=== PATIENT | female | born 1970 | race Caucasian/White ===

== ENCOUNTER → 2017-02-28 | Outpatient (CLI) | payer BC ==
--- NOTE | 2017-02-28 18:11 | CT ---
EXAMINATION TYPE: CT angio chest DATE OF EXAM: 02/28/2017 5:24 PM COMPARISON: 10/15/2016 HISTORY: F/U for PE x5 months ago. CT DLP: 245 mGycm Automated exposure control for dose reduction was used. CONTRAST: CTA scan of the thorax is performed with IV Contrast, patient injected with 60 mL of Omnipaque 350, p ulmonary embolism protocol. There are 3-D post processed images. FINDINGS: There is mild subpleural interstitial infiltrate in both lungs. There is no evidence of a pulmonary m ass. There is no pleural effusion. I see no filling defects in the pulmonary arteries. Thoracic aorta appears normal. There is no sign of aneurysm or dissection. There is no mediastinal adenopathy. Ther e are no hilar masses. There is a 1.5 cm right bronchial lymph node.. The bony thorax appears intact . IMPRESSION: THERE IS CLEARING OF THE RIGHT LOWER LOBE PULMONARY EMBOLI COMPARED TO OLD EXAM. THERE IS CLEARING OF THE PATCHY CONSOLIDATION IN THE RIGHT LOWER LOBE COMPARED TO OLD EXAM. THERE IS MILD NONSPECIFIC SUB PLEURAL INTERSTITIAL DENSITY CONSISTENT WITH MILD FIBROSIS. STABLE 1.5 CM RIGHT BRONCHIAL LYMPH NODE. NO EVIDENCE OF PULMONARY EMBOLISM.
== END | disposition home or self-care (01) ==
LOC: RADCTMAIN 16:54
PROVIDERS: ATTEND Internal Medicine Critical Care Medicine
DX: J84.10 Pulmonary fibrosis, unspecified (principal); R91.8 Other nonspecific abnormal finding of lung field
CPT/HCPCS: 71275; Q9967

== ENCOUNTER 2017-09-10 14:49 | Emergency (ER) | payer BC ==
[2017-09-10] MEDS ORDERED: HYDROmorphone 0.5 MG/0.5 ML SYRINGE IVP STA (15:14)
[2017-09-10] MEDS ORDERED: ONDANSETRON 4 MG/2 ML VIAL IVP STA (15:14)
[2017-09-10] MEDS ORDERED: PHENAZOPYRIDINE 200 MG TAB PO STA (15:16)
[2017-09-10] MEDS ORDERED: cefTRIAXone 2,000 MG in SODIUM CHLORIDE 0.9% 100 ML IVPB STA (15:22)
[2017-09-10] MEDS ORDERED: LEVOFLOXACIN 750MG-D5W PMX 750 MG in DEXTROSE/WATER 1 150ML.BAG IVPB STA (15:23)
[2017-09-10] MEDS: SODIUM CHLORIDE 0.9% 500 ML IV SCH ×2 (15:26→15:27)
[2017-09-10 15:49] LABS: Basophils % (A) 0 %; CH 27.3; CHCM 31.2; Eosinophils # (A) 0.1 k/uL (0-0.7); Eosinophils % (A) 1 %; HCT 38.8 % (34.0-46.0); HDW 2.64; HGB 11.8 gm/dL (11.4-16.0); Hypochromasia Slight; Luc # (Auto) 0.22; Luc % (Auto) 2; Lymphocytes # (A) 1.6 k/uL (1.0-4.8); Lymphocytes % (A) 14 %; MCH 26.7 pg (25.0-35.0); MCHC 30.4 g/dL (31.0-37.0); MCV 87.7 fL (80.0-100.0); Mean Platelet Volume 7.5; Monocytes # (A) 0.7 k/uL (0-1.0); Monocytes % (A) 6 %; Neutrophils # (A) 8.9 k/uL (1.3-7.7); Neutrophils % (A) 77 %; RBC 4.43 m/uL (3.80-5.40); RDW 15.7 % (11.5-15.5); WBC 11.5 k/uL (3.8-10.6); WBC (Perox) 11.24
[2017-09-10 15:58] LABS: Appearance,Urine Turbid (Clear); Bacteria,Urine Rare /hpf; Bilirubin,Urine Negative (Negative); Glucose,Urine (UA) Negative (Negative); INR 1.2 (<1.2); Ketones,Urine 1+ (Negative); Leukocyte Esterase,Urine Large (Negative); Mucus,Urine Few /hpf; Nitrite,Urine Negative (Negative); Partial Thromboplastin Time 28.2 sec (22.0-30.0); Particle Count 28937; Protein,Urine 3+ (Negative); Prothrombin Time 11.6 sec (9.0-12.0); RBC,Urine 102 /hpf (0-5); Specific Gravity,Urine 1.014 (1.001-1.035); Squamous Epithelial Cell,Urine 1 /hpf (0-4); UA Billing (MACRO vs. MICRO) MICRO; Urobilinogen,Urine <2.0 mg/dL (<2.0); WBC,Urine >182 /hpf (0-5)
--- NOTE | 2017-09-10 16:00 | XR ---
EXAMINATION TYPE: XR chest 2V DATE OF EXAM: 09/10/2017 COMPARISON: Prior chest x-ray 10/15/2016 HISTORY: Fever, chest congestion, emphysema TECHNIQUE: Frontal and lateral views of the chest are obtained. FINDINGS: There is no significant interval change. Interstitium appears somewhat prominently. Cardia c mediastinal silhouette, pulmonary vascularity and leonard are unchanged. Prominent lung volumes sugges ts underlying COPD. No pneumonia, pneumothorax, or pleural effusion. IMPRESSION: Stable findings. Interstitial lung disease.
[2017-09-10 16:01] LABS: ALT 25 U/L (9-52); AST 17 U/L (14-36); Alkaline Phosphatase 98 U/L (38-126); Anion Gap 11 mmol/L; Blood Urea Nitrogen 6 mg/dL (7-17); Calcium 9.2 mg/dL (8.4-10.2); Carbon Dioxide 23 mmol/L (22-30); Chloride 102 mmol/L (98-107); Glucose 95 mg/dL (74-99); Non-African American GFR(MDRD) >60 (>60 ml/min/1.73 sqM); Potassium 4.4 mmol/L (3.5-5.1); Sodium 136 mmol/L (137-145); Total Bilirubin 0.6 mg/dL (0.2-1.3); Total Protein 6.9 g/dL (6.3-8.2)
--- NOTE | 2017-09-10 16:01 | XR ---
EXAMINATION TYPE: XR KUB DATE OF EXAM: 09/10/2017 COMPARISON: 10/15/2016 INDICATION: Pain kidney area TECHNIQUE: Single view abdomen upright view FINDINGS: There is a normal bowel gas pattern. Psoas margins are normal. No organomegaly is present. No free air is evident. No suspicious differential air-fluid levels are present. No suspicious calcif ications are identified IMPRESSION: 1. Unremarkable Abdomen
--- NOTE | 2017-09-10 16:04 | ED ---
General Adult HPI - General Chief complaint: Abdominal Pain Stated complaint: Abd Pain/Congestion Time Seen by Provider: 09/10/17 15:07 Source: patient, EMS, RN notes reviewed Mode of arrival: EMS Limitations: no limitations - History of Present Illness Initial comments: This a 46-year-old female presents emergency Department chief complaint not feeling well. Patient states her last 2 weeks she's had cold-like symptoms and now has developed abdominal discomfort. Patient states that she started with cough and chest congestion was placed on amoxicillin and prednisone. She states she completed that states never completely alleviated her symptoms. Patient states that she's had an obstructive fevers and chills. Patient now has developed dysuria, increased frequency of urination and some lower abdominal pain. Patient denies nausea, vomiting, diarrhea or constipation. She does complain of some back pain but no localized flank pain. In states that she's had a history of urinary tract infection. Denies any chest pain or shortness of breath at this time. - Related Data Home Medications Medication Instructions Recorded Confirmed FLUoxetine HCL [PROzac] 60 mg PO DAILY 05/07/16 09/10/17 ALPRAZolam [Xanax] 0.5 mg PO BID PRN 09/10/17 09/10/17 Albuterol Sulfate [Proair Hfa] 1 - 2 puff INHALATION RT-Q6H PRN 09/10/17 Fluticasone/Vilanterol [Breo 1 puff INHALATION RT-DAILY 09/10/17 09/10/17 Ellipta 200-25 Mcg INH] Rivaroxaban [Xarelto] 20 mg PO DAILY 09/10/17 09/10/17 Previous Rx's Medication Instructions Recorded Hydrocodone/Acetaminophen [[place] 1 tab PO Q6HR PRN #15 tab 09/10/17 5-325] Levofloxacin [Levaquin] 500 mg PO DAILY #7 tab 09/10/17 Ondansetron Odt [Zofran Odt] 4 mg PO Q8HR PRN #10 tab 09/10/17 Allergies Allergy/AdvReac Type Severity Reaction Status Date / Time asparagus Allergy Unknown Verified 09/10/17 15:12 banana Allergy Unknown Verified 09/10/17 15:12 black walnut Allergy Unknown Verified 09/10/17 15:12 grape Allergy Unknown Verified 09/10/17 15:12 latex Allergy Rash/Hives Verified 09/10/17 15:12 Mushroom Allergy Unknown Verified 09/10/17 15:12 pineapple Allergy Unknown Verified 09/10/17 15:12 Sulfa (Sulfonamide Allergy Rash/Hives Verified 09/10/17 15:12 Antibiotics) tomato Allergy Unknown Verified 09/10/17 15:12 yeast, dried Allergy Rash/Hives Verified 09/10/17 15:12 bupropion HCl AdvReac Hallucinati Verified 09/10/17 15:12 [From Wellbutrin] ons Review of Systems ROS Statement: Those systems with pertinent positive or pertinent negative responses have been documented in the HPI. ROS Other: All systems not noted in ROS Statement are negative. Past Medical History Past Medical History: Asthma, Pulmonary Embolus (PE) Additional Past Medical History / Comment(s): lymes disease, pulmonary infarction, MTHFR gene mutation. History of Any Multi-Drug Resistant Organisms: None Reported Past Surgical History: Adenoidectomy, Tonsillectomy Past Anesthesia/Blood Transfusion Reactions: No Reported Reaction Past Psychological History: Anxiety, Depression Smoking Status: Current every day smoker Past Alcohol Use History: Occasional Past Drug Use History: None Reported - Past Family History Mother Family Medical History: No Reported History Father Family Medical History: Pulmonary Embolus Additional Family Medical History / Comment(s): father of PE post tramatic chest injury General Exam Limitations: no limitations General appearance: alert, in no apparent distress Head exam: Present: atraumatic, normocephalic, normal inspection Eye exam: Present: normal appearance, PERRL, EOMI. Absent: scleral icterus, conjunctival injection, periorbital swelling ENT exam: Present: normal exam, normal oropharynx, mucous membranes moist, TM's normal bilaterally, normal external ear exam Neck exam: Present: normal inspection. Absent: tenderness, meningismus, lymphadenopathy Respiratory exam: Present: rhonchi (Mild rhonchi right lower). Absent: normal lung sounds bilaterally, respiratory distress, wheezes, rales, stridor Cardiovascular Exam: Present: normal rhythm, tachycardia, normal heart sounds. Absent: systolic murmur, diastolic murmur, rubs, gallop, clicks GI/Abdominal exam: Present: soft, tenderness (Moderate suprapubic tenderness), normal bowel sounds. Absent: distended, guarding, rebound, rigid Back exam: Absent: CVA tenderness (R), CVA tenderness (L) Skin exam: Present: warm, dry, intact, normal color. Absent: rash Course Vital Signs 09/10/17 09/10/17 09/10/17 14:51 15:09 16:02 Temperature 99.1 F Pulse Rate 104 H 82 Respiratory 18 18 Rate Blood Pressure 109/72 116/55 O2 Sat by Pulse 97 100 Oximetry Medical Decision Making - Medical Decision Making 46-year-old female presented for urinary symptoms and cough congestion. Patient is feeling improved at this time. Patient primary complaining of lower abdominal pain when she urinated. Patient urinalysis does show evidence of urinary tract infection. Patient has no flank tenderness. Patient chest x-ray does not show any evidence in the morning she does have some evidence of acute bronchitis. Patient will be discharged antibiotics with close follow-up with PCP - Lab Data Result diagrams: 09/10/17 15:18 09/10/17 15:18 Lab Results 09/10/17 09/10/17 09/10/17 Range/Units 15:18 15:18 15:18 WBC 11.5 H (3.8-10.6) k/uL RBC 4.43 (3.80-5.40) m/uL Hgb 11.8 (11.4-16.0) gm/dL Hct 38.8 (34.0-46.0) % MCV 87.7 (80.0-100.0) fL MCH 26.7 (25.0-35.0) pg MCHC 30.4 L (31.0-37.0) g/dL RDW 15.7 H (11.5-15.5) % Plt Count 239 (150-450) k/uL Neutrophils % 77 % Lymphocytes % 14 % Monocytes % 6 % Eosinophils % 1 % Basophils % 0 % Neutrophils # 8.9 H (1.3-7.7) k/uL Lymphocytes # 1.6 (1.0-4.8) k/uL Monocytes # 0.7 (0-1.0) k/uL Eosinophils # 0.1 (0-0.7) k/uL Basophils # 0.0 (0-0.2) k/uL Hypochromasia Slight PT (9.0-12.0) sec INR (<1.2) APTT (22.0-30.0) sec Sodium 136 L (137-145) mmol/L Potassium 4.4 (3.5-5.1) mmol/L Chloride 102 (98-107) mmol/L Carbon Dioxide 23 (22-30) mmol/L Anion Gap 11 mmol/L BUN 6 L (7-17) mg/dL Creatinine 0.70 (0.52-1.04) mg/dL Est GFR (MDRD) Af Amer >60 (>60 ml/min/1.73 sqM) Est GFR (MDRD) Non-Af >60 (>60 ml/min/1.73 sqM) Glucose 95 (74-99) mg/dL Plasma Lactic Acid Gopi 1.2 (0.7-2.0) mmol/L Calcium 9.2 (8.4-10.2) mg/dL Total Bilirubin 0.6 (0.2-1.3) mg/dL AST 17 (14-36) U/L ALT 25 (9-52) U/L Alkaline Phosphatase 98 (38-126) U/L Total Protein 6.9 (6.3-8.2) g/dL Albumin 3.9 (3.5-5.0) g/dL Urine Color Urine Appearance (Clear) Urine pH (5.0-8.0) Ur Specific [place] (1.001-1.035) Urine Protein (Negative) Urine Glucose (UA) (Negative) Urine Ketones (Negative) Urine Blood (Negative) Urine Nitrite (Negative) Urine Bilirubin (Negative) Urine Urobilinogen (<2.0) mg/dL Ur Leukocyte Esterase (Negative) Urine RBC (0-5) /hpf Urine WBC (0-5) /hpf Urine WBC Clumps (None) /hpf Ur Squamous Epith Cells (0-4) /hpf Urine Bacteria (None) /hpf Hyaline Casts (0-2) /lpf Urine Mucus (None) /hpf 09/10/17 09/10/17 Range/Units 15:18 15:18 WBC (3.8-10.6) k/uL RBC (3.80-5.40) m/uL Hgb (11.4-16.0) gm/dL Hct (34.0-46.0) % MCV (80.0-100.0) fL MCH (25.0-35.0) pg MCHC (31.0-37.0) g/dL RDW (11.5-15.5) % Plt Count (150-450) k/uL Neutrophils % % Lymphocytes % % Monocytes % % Eosinophils % % Basophils % % Neutrophils # (1.3-7.7) k/uL Lymphocytes # (1.0-4.8) k/uL Monocytes # (0-1.0) k/uL Eosinophils # (0-0.7) k/uL Basophils # (0-0.2) k/uL Hypochromasia PT 11.6 (9.0-12.0) sec INR 1.2 H (<1.2) APTT 28.2 (22.0-30.0) sec Sodium (137-145) mmol/L Potassium (3.5-5.1) mmol/L Chloride (98-107) mmol/L Carbon Dioxide (22-30) mmol/L Anion Gap mmol/L BUN (7-17) mg/dL Creatinine (0.52-1.04) mg/dL Est GFR (MDRD) Af Amer (>60 ml/min/1.73 sqM) Est GFR (MDRD) Non-Af (>60 ml/min/1.73 sqM) Glucose (74-99) mg/dL Plasma Lactic Acid Gopi (0.7-2.0) mmol/L Calcium (8.4-10.2) mg/dL Total Bilirubin (0.2-1.3) mg/dL AST (14-36) U/L ALT (9-52) U/L Alkaline Phosphatase (38-126) U/L Total Protein (6.3-8.2) g/dL Albumin (3.5-5.0) g/dL Urine Color Yellow Urine Appearance Turbid H (Clear) Urine pH 7.0 (5.0-8.0) Ur Specific [place] 1.014 (1.001-1.035) Urine Protein 3+ H (Negative) Urine Glucose (UA) Negative (Negative) Urine Ketones 1+ H (Negative) Urine Blood Moderate H (Negative) Urine Nitrite Negative (Negative) Urine Bilirubin Negative (Negative) Urine Urobilinogen <2.0 (<2.0) mg/dL Ur Leukocyte Esterase Large H (Negative) Urine RBC 102 H (0-5) /hpf Urine WBC >182 H (0-5) /hpf Urine WBC Clumps Many H (None) /hpf Ur Squamous Epith Cells 1 (0-4) /hpf Urine Bacteria Rare H (None) /hpf Hyaline Casts 39 H (0-2) /lpf Urine Mucus Few H (None) /hpf Disposition Clinical Impression: Abdominal pain, UTI (urinary tract infection), Acute bronchitis Disposition: HOME SELF-CARE Condition: Stable Instructions: Abdominal Pain (ED), Urinary Tract Infection in Women (ED) Additional Instructions: Please return to the Emergency Department if symptoms worsen or any other concerns. Prescriptions: Hydrocodone/Acetaminophen [[place] 5-325] 1 tab PO Q6HR PRN #15 tab PRN Reason: Pain Levofloxacin [Levaquin] 500 mg PO DAILY #7 tab Ondansetron Odt [Zofran Odt] 4 mg PO Q8HR PRN #10 tab PRN Reason: Nausea Referrals: Antonino Swartz MD [Primary Care Provider] - 1-2 days Time of Disposition: 16:28
[2017-09-10 17:08] VITALS: BP 111/58; PULSE 71; RESP 16; TEMP 98.1
== END 2017-09-10 17:15 | disposition home or self-care (01) ==
LOC: EC 14:49
DX: N39.0 Urinary tract infection, site not specified (principal); J20.9 Acute bronchitis, unspecified; R10.9 Unspecified abdominal pain; J45.909 Unspecified asthma, uncomplicated; Z86.711 Personal history of pulmonary embolism; F32.9 Major depressive disorder, single episode, unspecified; F41.9 Anxiety disorder, unspecified; F17.200 Nicotine dependence, unspecified, uncomplicated; Z79.01 Long term (current) use of anticoagulants; Z79.51 Long term (current) use of inhaled steroids; Z79.899 Other long term (current) drug therapy; Z91.018 Allergy to other foods; Z91.040 Latex allergy status; Z88.2 Allergy status to sulfonamides; Z88.8 Allergy status to other drugs, medicaments and biological substances; Z91.048 Other nonmedicinal substance allergy status
CPT/HCPCS: 99284 ×2; 96375 ×3; 96374; 36415; 80053; 83605; 85025; 85610; 85730; 81001; 87040; 87086; 87077; 87186; 71020; 74000; 96365; 96361; J2405; J1956; J1170

== ENCOUNTER 2018-01-07 11:58 | Emergency (ER) | payer BC ==
[2018-01-07 12:03] VITALS: RESP 18
--- NOTE | 2018-01-07 12:36 | ED ---
General Adult HPI - General Chief complaint: Urogenital Stated complaint: Rash Time Seen by Provider: 01/07/18 12:06 Source: patient, RN notes reviewed Mode of arrival: ambulatory Limitations: no limitations - History of Present Illness Initial comments: 47-year-old female presents to the emergency Department chief complaint of dysuria. She states she's had dysuria for the past few days. She has long history of bladder infections in the past. She states she's had a foul odor to her urine and burning with urination. Patient states that she also developed this rash after receiving a Hydrospa2 days ago she had a few spots nontender abdomen her hands and her feet. She states that they are itchy. They came up right after receiving the MUD from the Hydrospa. She states she's also had some cough and congestion. Patient denies any fever chills any back pain. She denies any nausea or vomiting. [facility] was [facility] here for continued evaluation. Patient denies any recent fever, chills, shortness of breath, chest pain, back pain, abdominal pain, nausea vomiting, numbness or tingling,hematuria, constipation or diarrhea, headaches or visual changes, or any other current symptoms. - Related Data Home Medications Medication Instructions Recorded Confirmed FLUoxetine HCL [PROzac] 60 mg PO DAILY 05/07/16 01/07/18 ALPRAZolam [Xanax] 0.5 mg PO BID PRN 09/10/17 01/07/18 Rivaroxaban [Xarelto] 20 mg PO DAILY 09/10/17 01/07/18 Allergies Allergy/AdvReac Type Severity Reaction Status Date / Time asparagus Allergy Unknown Verified 01/07/18 12:38 banana Allergy Unknown Verified 01/07/18 12:38 black walnut Allergy Unknown Verified 01/07/18 12:38 grape Allergy Unknown Verified 01/07/18 12:38 latex Allergy Rash/Hives Verified 01/07/18 12:38 Mushroom Allergy Unknown Verified 01/07/18 12:38 pineapple Allergy Unknown Verified 01/07/18 12:38 Sulfa (Sulfonamide Allergy Rash/Hives Verified 01/07/18 12:38 Antibiotics) tomato Allergy Unknown Verified 01/07/18 12:38 yeast, dried Allergy Rash/Hives Verified 01/07/18 12:38 bupropion HCl AdvReac Hallucinati Verified 01/07/18 12:38 [From Wellbutrin] ons mold AdvReac Unknown Verified 01/07/18 12:38 Review of Systems ROS Statement: Those systems with pertinent positive or pertinent negative responses have been documented in the HPI. ROS Other: All systems not noted in ROS Statement are negative. Past Medical History Past Medical History: Asthma, Pulmonary Embolus (PE) Additional Past Medical History / Comment(s): lymes disease, pulmonary infarction, MTHFR gene mutation. History of Any Multi-Drug Resistant Organisms: None Reported Past Surgical History: Adenoidectomy, Tonsillectomy Past Anesthesia/Blood Transfusion Reactions: No Reported Reaction Past Psychological History: Anxiety, Depression Smoking Status: Current every day smoker Past Alcohol Use History: Occasional Past Drug Use History: None Reported - Past Family History Mother Family Medical History: No Reported History Father Family Medical History: Pulmonary Embolus Additional Family Medical History / Comment(s): father of PE post tramatic chest injury General Exam Limitations: no limitations General appearance: alert, in no apparent distress ENT exam: Present: normal exam, mucous membranes moist Neck exam: Present: normal inspection. Absent: tenderness, meningismus, lymphadenopathy Respiratory exam: Present: normal lung sounds bilaterally. Absent: respiratory distress, wheezes, rales, rhonchi, stridor Cardiovascular Exam: Present: regular rate, normal rhythm, normal heart sounds. Absent: systolic murmur, diastolic murmur, rubs, gallop, clicks GI/Abdominal exam: Present: soft, tenderness (Minimal suprapubic), normal bowel sounds. Absent: distended, guarding, rebound, rigid Extremities exam: Present: normal inspection, full ROM, normal capillary refill. Absent: tenderness, pedal edema, joint swelling, calf tenderness Back exam: Present: normal inspection Neurological exam: Present: alert, oriented X3 Psychiatric exam: Present: normal affect, normal mood Skin exam: Present: warm, dry, other (Small papules on the hands abdomen and foot) Course Vital Signs 01/07/18 01/07/18 12:00 15:03 Temperature 98.1 F Pulse Rate 78 75 Respiratory 18 18 Rate Blood Pressure 138/73 132/62 O2 Sat by Pulse 100 99 Oximetry Medical Decision Making - Medical Decision Making 47-year-old female presents for cough and congestion. At this time patient's lab work is been reviewed. At this time patient's CAT scan is been reviewed. We did discussion follow-up with her doctor for some fluid collection. We did discuss return parameters all questions. The patient stated that she understood and she is agreement this plan. All questions have been answered. This time the patient will be discharged home. - Lab Data Result diagrams: 01/07/18 14:00 01/07/18 14:00 Lab Results 01/07/18 01/07/18 01/07/18 Range/Units 12:55 12:55 14:00 WBC 8.3 (3.8-10.6) k/uL RBC 4.54 (3.80-5.40) m/uL Hgb 11.5 (11.4-16.0) gm/dL Hct 38.4 (34.0-46.0) % MCV 84.5 (80.0-100.0) fL MCH 25.2 (25.0-35.0) pg MCHC 29.8 L (31.0-37.0) g/dL RDW 16.0 H (11.5-15.5) % Plt Count 292 (150-450) k/uL Neutrophils % 60 % Lymphocytes % 30 % Monocytes % 6 % Eosinophils % 1 % Basophils % 1 % Neutrophils # 5.0 (1.3-7.7) k/uL Lymphocytes # 2.5 (1.0-4.8) k/uL Monocytes # 0.5 (0-1.0) k/uL Eosinophils # 0.1 (0-0.7) k/uL Basophils # 0.1 (0-0.2) k/uL Hypochromasia Moderate Sodium (137-145) mmol/L Potassium (3.5-5.1) mmol/L Chloride (98-107) mmol/L Carbon Dioxide (22-30) mmol/L Anion Gap mmol/L BUN (7-17) mg/dL Creatinine (0.52-1.04) mg/dL Est GFR (MDRD) Af Amer (>60 ml/min/1.73 sqM) Est GFR (MDRD) Non-Af (>60 ml/min/1.73 sqM) Glucose (74-99) mg/dL Calcium (8.4-10.2) mg/dL Total Bilirubin (0.2-1.3) mg/dL AST (14-36) U/L ALT (9-52) U/L Alkaline Phosphatase (38-126) U/L Total Protein (6.3-8.2) g/dL Albumin (3.5-5.0) g/dL Urine Color Light Yellow Urine Appearance Clear (Clear) Urine pH 6.5 (5.0-8.0) Ur Specific [place] 1.005 (1.001-1.035) Urine Protein Negative (Negative) Urine Glucose (UA) Negative (Negative) Urine Ketones Negative (Negative) Urine Blood Negative (Negative) Urine Nitrite Negative (Negative) Urine Bilirubin Negative (Negative) Urine Urobilinogen <2.0 (<2.0) mg/dL Ur Leukocyte Esterase Negative (Negative) Influenza Type A RNA Not Detected (Not Detectd) Influenza Type B (PCR) Not Detected (Not Detectd) 01/07/18 Range/Units 14:00 WBC (3.8-10.6) k/uL RBC (3.80-5.40) m/uL Hgb (11.4-16.0) gm/dL Hct (34.0-46.0) % MCV (80.0-100.0) fL MCH (25.0-35.0) pg MCHC (31.0-37.0) g/dL RDW (11.5-15.5) % Plt Count (150-450) k/uL Neutrophils % % Lymphocytes % % Monocytes % % Eosinophils % % Basophils % % Neutrophils # (1.3-7.7) k/uL Lymphocytes # (1.0-4.8) k/uL Monocytes # (0-1.0) k/uL Eosinophils # (0-0.7) k/uL Basophils # (0-0.2) k/uL Hypochromasia Sodium 142 (137-145) mmol/L Potassium 4.5 (3.5-5.1) mmol/L Chloride 104 (98-107) mmol/L Carbon Dioxide 27 (22-30) mmol/L Anion Gap 11 mmol/L BUN 12 (7-17) mg/dL Creatinine 0.90 (0.52-1.04) mg/dL Est GFR (MDRD) Af Amer >60 (>60 ml/min/1.73 sqM) Est GFR (MDRD) Non-Af >60 (>60 ml/min/1.73 sqM) Glucose 89 (74-99) mg/dL Calcium 9.9 (8.4-10.2) mg/dL Total Bilirubin 0.2 (0.2-1.3) mg/dL AST 20 (14-36) U/L ALT 27 (9-52) U/L Alkaline Phosphatase 100 (38-126) U/L Total Protein 7.2 (6.3-8.2) g/dL Albumin 4.4 (3.5-5.0) g/dL Urine Color Urine Appearance (Clear) Urine pH (5.0-8.0) Ur Specific [place] (1.001-1.035) Urine Protein (Negative) Urine Glucose (UA) (Negative) Urine Ketones (Negative) Urine Blood (Negative) Urine Nitrite (Negative) Urine Bilirubin (Negative) Urine Urobilinogen (<2.0) mg/dL Ur Leukocyte Esterase (Negative) Influenza Type A RNA (Not Detectd) Influenza Type B (PCR) (Not Detectd) - Radiology Data Radiology results: report reviewed, image reviewed Disposition Clinical Impression: Abdominal pain, Chest congestion Disposition: HOME SELF-CARE Condition: Stable Instructions: Abdominal Pain (ED) Additional Instructions: Please use medication as discussed. Please follow up with family doctor if symptoms have not improved over the next two days. Please return to the emergency room if your symptoms increase or worsen or for any other concerns. Referrals: Antonino Swartz MD [Primary Care Provider] - 1-2 days Time of Disposition: 16:27
[2018-01-07 13:14] LABS: Appearance,Urine Clear (Clear); Bilirubin,Urine Negative (Negative); Blood,Urine Negative (Negative); Color,Urine Light Yellow; Glucose,Urine (UA) Negative (Negative); Ketones,Urine Negative (Negative); Leukocyte Esterase,Urine Negative (Negative); Nitrite,Urine Negative (Negative); PH, Urine 6.5 (5.0-8.0); Protein,Urine Negative (Negative); Specific Gravity,Urine 1.005 (1.001-1.035); Urobilinogen,Urine <2.0 mg/dL (<2.0)
--- NOTE | 2018-01-07 13:29 | XR ---
EXAMINATION TYPE: XR chest 2V DATE OF EXAM: 01/07/2018 COMPARISON: 09/10/2017 TECHNIQUE: PA and lateral views submitted. HISTORY: Cough FINDINGS: The lungs are clear and there is no pneumothorax, pleural effusion, or focal pneumonia. Biapical pl eural thickening. Hypertrophic change of the spine. IMPRESSION: 1. No acute process.
[2018-01-07 14:22] LABS: Basophils # (A) 0.1 k/uL (0-0.2); Basophils % (A) 1 %; Eosinophils # (A) 0.1 k/uL (0-0.7); Eosinophils % (A) 1 %; HCT 38.4 % (34.0-46.0); HGB 11.5 gm/dL (11.4-16.0); Hypochromasia Moderate; Lymphocytes # (A) 2.5 k/uL (1.0-4.8); Lymphocytes % (A) 30 %; MCH 25.2 pg (25.0-35.0); MCHC 29.8 g/dL (31.0-37.0); MCV 84.5 fL (80.0-100.0); Mean Platelet Volume 7.6; Monocytes # (A) 0.5 k/uL (0-1.0); Monocytes % (A) 6 %; Neutrophils % (A) 60 %; Platelet Count 292 k/uL (150-450); RBC 4.54 m/uL (3.80-5.40); WBC 8.3 k/uL (3.8-10.6)
[2018-01-07 14:33] LABS: ALT 27 U/L (9-52); AST 20 U/L (14-36); Albumin 4.4 g/dL (3.5-5.0); Alkaline Phosphatase 100 U/L (38-126); Anion Gap 11 mmol/L; Blood Urea Nitrogen 12 mg/dL (7-17); Calcium 9.9 mg/dL (8.4-10.2); Carbon Dioxide 27 mmol/L (22-30); Chloride 104 mmol/L (98-107); Glucose 89 mg/dL (74-99); Potassium 4.5 mmol/L (3.5-5.1); Sodium 142 mmol/L (137-145); Total Bilirubin 0.2 mg/dL (0.2-1.3); Total Protein 7.2 g/dL (6.3-8.2)
[2018-01-07] MEDS ORDERED: RX INFO: IV CONTRAST WAS GIVEN 1 EACH MISC MISCELLANE PRN (14:38)
--- NOTE | 2018-01-07 16:24 | CT ---
EXAMINATION TYPE: CT abdomen pelvis w con DATE OF EXAM: 01/07/2018 COMPARISON: Prior CT abdomen pelvis 10/17/2016 HISTORY: Pain and burning with urination. CT DLP: 1346 mGycm Automated exposure control for dose reduction was used. TECHNIQUE: Helical acquisition of images from the lung bases through the pelvis have been completed. CONTRAST: Performed without Oral Contrast and with IV Contrast, patient injected with 100 mL of Omnipaque 300. FINDINGS: LUNG BASES: No significant abnormality is appreciated. AORTA: No significant abnormality is appreciated. LIVER/GB: Liver shows low attenuation likely due to fatty infiltration, some focal fatty sparing sugg ested adjacent to the gallbladder, gallbladder shows a thickened wall and is contracted PANCREAS: No significant abnormality is seen. SPLEEN: No significant abnormality is seen. ADRENALS: No significant abnormality is seen. KIDNEYS: No significant abnormality is seen. REPRODUCTIVE ORGANS: No significant abnormality is seen. Interval resolution of patient's right cysti c lesion. BOWEL: No significant abnormality is seen. The appendix is normal. Fluid density is present within t he mesenteric fat on axial image 62 measuring 2.2 cm which is indeterminate but shows a nonaggressive appearance FREE AIR: No Free Air visible. ASCITES: None visible. PELVIC ADENOPATHY: None visualized. RETROPERITONEAL ADENOPATHY: No Retroperitoneal Adenopathy visible. URINARY BLADDER: No significant abnormality is seen. OSSEOUS STRUCTURES: No significant abnormality is seen. IMPRESSION: NO ABNORMALITY EVIDENT TO ACCOUNT FOR PATIENT'S SYMPTOMS. 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 Nonspecific flu id within the mesenteric fat is indeterminate, consider follow-up to assess for interval resolution.
--- NOTE | 2018-01-07 16:29 | ED ---
Medical Decision Making - Medical Decision Making We also discussed the patient's rash. We did discuss using Benadryl for this. We did discuss follow-up return parameters with this. Patient in agreement. - Lab Data Result diagrams: 01/07/18 14:00 01/07/18 14:00 Lab Results 01/07/18 01/07/18 01/07/18 Range/Units 12:55 12:55 14:00 WBC 8.3 (3.8-10.6) k/uL RBC 4.54 (3.80-5.40) m/uL Hgb 11.5 (11.4-16.0) gm/dL Hct 38.4 (34.0-46.0) % MCV 84.5 (80.0-100.0) fL MCH 25.2 (25.0-35.0) pg MCHC 29.8 L (31.0-37.0) g/dL RDW 16.0 H (11.5-15.5) % Plt Count 292 (150-450) k/uL Neutrophils % 60 % Lymphocytes % 30 % Monocytes % 6 % Eosinophils % 1 % Basophils % 1 % Neutrophils # 5.0 (1.3-7.7) k/uL Lymphocytes # 2.5 (1.0-4.8) k/uL Monocytes # 0.5 (0-1.0) k/uL Eosinophils # 0.1 (0-0.7) k/uL Basophils # 0.1 (0-0.2) k/uL Hypochromasia Moderate Sodium (137-145) mmol/L Potassium (3.5-5.1) mmol/L Chloride (98-107) mmol/L Carbon Dioxide (22-30) mmol/L Anion Gap mmol/L BUN (7-17) mg/dL Creatinine (0.52-1.04) mg/dL Est GFR (MDRD) Af Amer (>60 ml/min/1.73 sqM) Est GFR (MDRD) Non-Af (>60 ml/min/1.73 sqM) Glucose (74-99) mg/dL Calcium (8.4-10.2) mg/dL Total Bilirubin (0.2-1.3) mg/dL AST (14-36) U/L ALT (9-52) U/L Alkaline Phosphatase (38-126) U/L Total Protein (6.3-8.2) g/dL Albumin (3.5-5.0) g/dL Urine Color Light Yellow Urine Appearance Clear (Clear) Urine pH 6.5 (5.0-8.0) Ur Specific [place] 1.005 (1.001-1.035) Urine Protein Negative (Negative) Urine Glucose (UA) Negative (Negative) Urine Ketones Negative (Negative) Urine Blood Negative (Negative) Urine Nitrite Negative (Negative) Urine Bilirubin Negative (Negative) Urine Urobilinogen <2.0 (<2.0) mg/dL Ur Leukocyte Esterase Negative (Negative) Influenza Type A RNA Not Detected (Not Detectd) Influenza Type B (PCR) Not Detected (Not Detectd) 01/07/18 Range/Units 14:00 WBC (3.8-10.6) k/uL RBC (3.80-5.40) m/uL Hgb (11.4-16.0) gm/dL Hct (34.0-46.0) % MCV (80.0-100.0) fL MCH (25.0-35.0) pg MCHC (31.0-37.0) g/dL RDW (11.5-15.5) % Plt Count (150-450) k/uL Neutrophils % % Lymphocytes % % Monocytes % % Eosinophils % % Basophils % % Neutrophils # (1.3-7.7) k/uL Lymphocytes # (1.0-4.8) k/uL Monocytes # (0-1.0) k/uL Eosinophils # (0-0.7) k/uL Basophils # (0-0.2) k/uL Hypochromasia Sodium 142 (137-145) mmol/L Potassium 4.5 (3.5-5.1) mmol/L Chloride 104 (98-107) mmol/L Carbon Dioxide 27 (22-30) mmol/L Anion Gap 11 mmol/L BUN 12 (7-17) mg/dL Creatinine 0.90 (0.52-1.04) mg/dL Est GFR (MDRD) Af Amer >60 (>60 ml/min/1.73 sqM) Est GFR (MDRD) Non-Af >60 (>60 ml/min/1.73 sqM) Glucose 89 (74-99) mg/dL Calcium 9.9 (8.4-10.2) mg/dL Total Bilirubin 0.2 (0.2-1.3) mg/dL AST 20 (14-36) U/L ALT 27 (9-52) U/L Alkaline Phosphatase 100 (38-126) U/L Total Protein 7.2 (6.3-8.2) g/dL Albumin 4.4 (3.5-5.0) g/dL Urine Color Urine Appearance (Clear) Urine pH (5.0-8.0) Ur Specific [place] (1.001-1.035) Urine Protein (Negative) Urine Glucose (UA) (Negative) Urine Ketones (Negative) Urine Blood (Negative) Urine Nitrite (Negative) Urine Bilirubin (Negative) Urine Urobilinogen (<2.0) mg/dL Ur Leukocyte Esterase (Negative) Influenza Type A RNA (Not Detectd) Influenza Type B (PCR) (Not Detectd) Disposition Clinical Impression: Abdominal pain, Chest congestion, Allergic reaction Disposition: HOME SELF-CARE Condition: Stable Instructions: Abdominal Pain (ED) Additional Instructions: Please use medication as discussed. Please follow up with family doctor if symptoms have not improved over the next two days. Please return to the emergency room if your symptoms increase or worsen or for any other concerns. Referrals: Antonino Swartz MD [Primary Care Provider] - 1-2 days
[2018-01-07] MEDS ORDERED: HYDROmorphone 0.5 MG/0.5 ML SYRINGE IVP STA (17:03)
[2018-01-07 17:25] VITALS: BP 145/65; PULSE 87; TEMP 97.8
== END 2018-01-07 17:24 | disposition home or self-care (01) ==
LOC: EC 11:58
DX: T78.49XA Other allergy, initial encounter (principal); R10.9 Unspecified abdominal pain; R09.89 Other specified symptoms and signs involving the circulatory and respiratory systems; R05 Cough; R30.0 Dysuria; Z86.711 Personal history of pulmonary embolism; F32.9 Major depressive disorder, single episode, unspecified; F41.9 Anxiety disorder, unspecified; F17.200 Nicotine dependence, unspecified, uncomplicated; Z79.01 Long term (current) use of anticoagulants; Z79.899 Other long term (current) drug therapy; Z91.040 Latex allergy status; Z91.018 Allergy to other foods; Z88.8 Allergy status to other drugs, medicaments and biological substances; Z88.2 Allergy status to sulfonamides; Z91.048 Other nonmedicinal substance allergy status
CPT/HCPCS: 36415; 80053; 85025; 81003; 87086; 87502; 71046; 74177; 99284; 96374; Q9967; J1170

== ENCOUNTER → 2018-04-29 | Outpatient (CLI) | payer BC ==
[2018-04-29 17:23] LABS: Anisocytosis Slight; Basophils % (A) 0 %; Eosinophils # (A) 0.1 k/uL (0-0.7); Eosinophils % (A) 1 %; HCT 37.9 % (34.0-46.0); HGB 11.8 gm/dL (11.4-16.0); Hypochromasia Moderate; Lymphocytes # (A) 2.5 k/uL (1.0-4.8); Lymphocytes % (A) 25 %; MCH 25.4 pg (25.0-35.0); MCHC 31.2 g/dL (31.0-37.0); MCV 81.2 fL (80.0-100.0); Mean Platelet Volume 7.5; Monocytes # (A) 0.5 k/uL (0-1.0); Monocytes % (A) 5 %; Neutrophils # (A) 6.9 k/uL (1.3-7.7); Neutrophils % (A) 68 %; Platelet Count 281 k/uL (150-450); RBC 4.67 m/uL (3.80-5.40); RDW 16.5 % (11.5-15.5); WBC 10.2 k/uL (3.8-10.6)
[2018-04-29 17:28] LABS: Appearance,Urine Clear (Clear); Bilirubin,Urine Negative (Negative); Blood,Urine Negative (Negative); Color,Urine Colorless; Glucose,Urine (UA) Negative (Negative); Ketones,Urine Negative (Negative); Leukocyte Esterase,Urine Negative (Negative); Nitrite,Urine Negative (Negative); PH, Urine 6.5 (5.0-8.0); Protein,Urine Negative (Negative); Specific Gravity,Urine 1.001 (1.001-1.035); Urobilinogen,Urine <2.0 mg/dL (<2.0)
[2018-04-29 17:47] LABS: Anion Gap 12 mmol/L; Blood Urea Nitrogen 11 mg/dL (7-17); Calcium 9.9 mg/dL (8.4-10.2); Carbon Dioxide 28 mmol/L (22-30); Chloride 100 mmol/L (98-107); Glucose 118 mg/dL (74-99); Potassium 4.2 mmol/L (3.5-5.1); Sodium 140 mmol/L (137-145)
== END | disposition home or self-care (01) ==
LOC: LABPAT 16:36
PROVIDERS: ATTEND Urology
DX: Z01.812 Encounter for preprocedural laboratory examination (principal); N39.3 Stress incontinence (female) (male); R31.29 Other microscopic hematuria; R35.0 Frequency of micturition; Z79.899 Other long term (current) drug therapy
CPT/HCPCS: 36415; 80048; 81003; 85025; 87086

== ENCOUNTER → 2018-05-28 | Outpatient (CLI) | payer BC ==
[2018-05-28 14:21] LABS: Anisocytosis Slight; Basophils % (A) 1 %; Eosinophils # (A) 0.1 k/uL (0-0.7); Eosinophils % (A) 2 %; HCT 37.5 % (34.0-46.0); HGB 11.7 gm/dL (11.4-16.0); Hypochromasia Slight; Lymphocytes # (A) 2.2 k/uL (1.0-4.8); Lymphocytes % (A) 37 %; MCH 25.2 pg (25.0-35.0); MCHC 31.2 g/dL (31.0-37.0); MCV 80.8 fL (80.0-100.0); Mean Platelet Volume 7.7; Monocytes # (A) 0.4 k/uL (0-1.0); Monocytes % (A) 7 %; Neutrophils % (A) 50 %; Platelet Count 295 k/uL (150-450); RBC 4.64 m/uL (3.80-5.40); RDW 16.6 % (11.5-15.5); WBC 6.1 k/uL (3.8-10.6)
[2018-05-28 14:26] LABS: Anion Gap 12 mmol/L; Blood Urea Nitrogen 10 mg/dL (7-17); Calcium 9.7 mg/dL (8.4-10.2); Carbon Dioxide 25 mmol/L (22-30); Chloride 103 mmol/L (98-107); Glucose 86 mg/dL (74-99); Potassium 5.2 mmol/L (3.5-5.1); Sodium 140 mmol/L (137-145)
[2018-05-28 14:28] LABS: Appearance,Urine Clear (Clear); Bilirubin,Urine Negative (Negative); Blood,Urine Negative (Negative); Color,Urine Yellow; Glucose,Urine (UA) Negative (Negative); Ketones,Urine Negative (Negative); Leukocyte Esterase,Urine Negative (Negative); Nitrite,Urine Negative (Negative); Protein,Urine Negative (Negative); Specific Gravity,Urine 1.008 (1.001-1.035); Urobilinogen,Urine <2.0 mg/dL (<2.0)
== END | disposition home or self-care (01) ==
LOC: LABPAT 13:29
PROVIDERS: ATTEND Urology
DX: Z01.812 Encounter for preprocedural laboratory examination (principal); N39.3 Stress incontinence (female) (male); R35.0 Frequency of micturition; R31.21 Asymptomatic microscopic hematuria; Z79.899 Other long term (current) drug therapy
CPT/HCPCS: 80048; 81003; 85025; 87086

== ENCOUNTER 2018-06-03 08:24 | Day surgery (SDC) | payer BC ==
[2018-04-29 16:06] VITALS: BMI 24.1
--- NOTE | 2018-06-01 21:14 | P.GSHP ---
History of Present Illness H&P Date: 06/01/18 this 47 yo female comes for placement of a TOT for stress urinary incontinence This has gone on since 2014 Her P/E , history and Uds are c/w this and will benefit from this surgerical procedure She has failed kegal exercises, anticholinergics She now comes for this procedures. 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 IBS, anemia, hx lymes disease, urinary incontinence History of Any Multi-Drug Resistant Organisms: None Reported Past Surgical History: Adenoidectomy, Tonsillectomy Additional Past Surgical History / Comment(s): laser surgery on cervix for precancer, D&C Past Anesthesia/Blood Transfusion Reactions: Motion Sickness Smoking Status: Current every day smoker - Past Family History Mother Family Medical History: No Reported History Father Family Medical History: Pulmonary Embolus Additional Family Medical History / Comment(s): father of PE post tramatic chest injury Medications and Allergies Home Medications Medication Instructions Recorded Confirmed Type FLUoxetine HCL [PROzac] 20 mg PO BID 05/07/16 06/01/18 History ALPRAZolam [Xanax] 0.5 mg PO DAILY 09/10/17 06/01/18 History Rivaroxaban [Xarelto] 20 mg PO DAILY 09/10/17 06/01/18 History traMADol HCl [Ultram] 50 mg PO Q6H PRN #20 tab 01/07/18 06/01/18 Rx Albuterol Nebulized [Ventolin 2.5 mg INHALATION DIRECTED PRN 04/29/18 History Nebulized] Lovenox(Dose Unknown) 1 applicate INJ DIRECTED 04/30/18 06/01/18 History Albuterol Sulfate [Proair Hfa] 2 puff INHALATION Q6HR PRN 06/01/18 06/01/18 History Glycopyrrolate/Formoterol Fum 1 puff INHALATION BID 06/01/18 06/01/18 History [Bevespi Aerosphere Inhaler] guaiFENesin 400 mg PO DAILY 06/01/18 06/01/18 History Allergies Allergy/AdvReac Type Severity Reaction Status Date / Time asparagus Allergy Unknown Verified 06/01/18 16:04 banana Allergy Unknown Verified 06/01/18 16:04 black walnut Allergy Unknown Verified 06/01/18 16:04 grape Allergy Unknown Verified 06/01/18 16:04 latex Allergy Rash/Hives Verified 06/01/18 16:04 Mushroom Allergy Unknown Verified 06/01/18 16:04 pineapple Allergy Unknown Verified 06/01/18 16:04 Sulfa (Sulfonamide Allergy Rash/Hives Verified 06/01/18 16:04 Antibiotics) sulfamethoxazole Allergy Rash/Hives Verified 06/01/18 16:04 [From Bactrim] tomato Allergy Unknown Verified 06/01/18 16:04 trimethoprim [From Bactrim] Allergy Rash/Hives Verified 06/01/18 16:04 venlafaxine [From Effexor] Allergy Hallucinati Verified 06/01/18 16:04 ons yeast, dried Allergy Rash/Hives Verified 06/01/18 16:04 bupropion HCl AdvReac Hallucinati Verified 06/01/18 16:04 [From Wellbutrin] ons mold AdvReac Unknown Verified 06/01/18 16:04 Surgical - Exam - General well developed, well nourished, no distress - Eyes PERRL - ENT no hearing loss - Neck no masses - Respiratory normal expansion, normal respiratory effort - Cardiovascular Rhythm: regular - Abdomen Abdomen: soft, non tender - Genitourinary positive federico, positive nghia test normal external genitalia - Integumentary no rash - Neurologic normal coordination, normal sensation - Psychiatric oriented to time, oriented to person, oriented to place, speech is normal, memory intact Assessment and Plan Assessment: Impression: Stress urinary incontinence Plan : TOT
[~2018-06-03 08:24] MED LIST: DEXAMETHASONE SOD PHOSPHATE 10 MG/ML 1 ML VIAL IV ONE; HYDROmorphone 0.5 MG/0.5 ML SYRINGE IVP PRN; ONDANSETRON 4 MG/2 ML VIAL IVP ONE; ceFAZolin 1,000 MG in DEXTROSE/WATER 1 50ML.BAG IV ONE
[2018-06-03] MEDS: LACTATED RINGERS 1,000 ML IV SCH ×2 (08:56→09:11)
[2018-06-03] MEDS ORDERED: HYDROmorphone (PF) 1 MG/ML ONE (09:14)
[2018-06-03] MEDS ORDERED: NEOSTIGMINE 1 MG/ML 10 ML VIAL ONE (09:14)
[2018-06-03] MEDS ORDERED: PROPOFOL 10 MG/ML 20 ML VIAL IV ONE (09:14)
[2018-06-03] MEDS ORDERED: ROCURONIUM BROMIDE 10 MG/ML 10 ML VIAL IV ONE (09:14)
[2018-06-03] MEDS ORDERED: LIDOCAINE 1% INJ 10MG/ML (20 ML MDV) ONE (09:14)
[2018-06-03] MEDS ORDERED: MIDAZOLAM 2 MG/2 ML VIAL ONE (09:14)
[2018-06-03] MEDS ORDERED: fentaNYL (PF) 50 MCG/ML 2 ML AMP ONE (09:14)
[2018-06-03] MEDS ORDERED: GLYCOPYRROLATE 0.2 MG/ML 2 ML VIAL ONE (09:14)
[2018-06-03] MEDS ORDERED: BACITRACIN 500 UNIT/GM OINT 28.4 GM TUBE TOPICAL ONE ×2 (09:36→09:52)
[2018-06-03] MEDS ORDERED: VASOPRESSIN 20 UNIT/ML 1 ML VIAL SQ ONE (09:36)
[2018-06-03] MEDS ORDERED: ALBUTEROL NEBULIZED 2.5 MG/3 ML INHALATION PRN ×2 (10:04)
--- NOTE | 2018-06-03 10:12 | P.OP ---
Date of Procedure: 06/03/18 Preoperative Diagnosis: Stress urinary incontinence Postoperative Diagnosis: Stress urinary incontinence, cystocele Procedure(s) Performed: Trans-obturator tape, cystoscopy, anterior repair Anesthesia: AIXA Surgeon: Riley Farias Estimated Blood Loss (ml): 50 Pathology: none sent Condition: stable Disposition: PACU Indications for Procedure: The patient is a 47-year-old female with documented stress urinary incontinence. She comes for a trans-obturator tape. Description of Procedure: The patient is brought to the operating suite. She is given a successful general endotracheal anesthesia. She's placed lithotomy position with a sterile prep and drape. A 14-Tongan nonlatex Hawkins catheters introduced in the bladder. The labia sewn laterally with 2-0 silk. A vaginal speculum was introduced. It is noted there is a grade 2-3 cystocele. The anterior vaginal mucosa was elevated off the submucosa with a mixture of 20 micrograms of Pitressin and 200 mL of saline. I then make a suburethral midline incision back into the base of the bladder to deal with a cystocele as well as place the trans-obturator tape. I dissect lateral the bladder neck bilaterally. 2 incisions in the inguinal crease at the level of the clitoris. The obturator tape introducers were passed through these incisions through the obturator foramen around the issue pubic ramus into the vaginal space bilaterally. I make sure not to buttonhole the vagina. I then performed cystoscopy with a Foroblique lens and 21-Tongan sheath to make sure there is no bladder injury and there is none. I reintroduced the Hawkins. I place a trans-obturator tape on the introducers and pull them back through the inguinal crease bilaterally. The tape sits in the mid urethra nicely without tension. I then dissect the bladder off the vaginal wall. I then placed 2 2-0 Vicryl stitches through Vaginal tissue bilaterally. This reduces a cystocele. I then closed the vaginal mucosa with a running 3-0 Vicryl. I excised the redundant sheathing and graft at the inguinal incisions. A close inguinal incision with 4-0 Vicryl. The urine remains clear. The bladder strain the patient's awake and returned recovery room good condition. Blood loss approximately 50 mL. She'll remain in the hospital postoperatively overnight.
[2018-06-03] MEDS ORDERED: HYDROmorphone 0.5 MG/0.5 ML SYRINGE IVP ONE (10:47)
[2018-06-03] MEDS ORDERED: diphenhydrAMINE 50 MG/ML 1 ML VIAL IVP ONE (10:57)
[2018-06-03] MEDS: DEXTROSE 5%-0.45% NACL 1,000 ML IV SCH (11:44)
[2018-06-03] MEDS: KETOROLAC 30 MG/ML 1 ML VIAL IVP PRN ×2 (13:26→19:37)
[2018-06-03] MEDS: traMADol 50 MG TAB PO PRN (14:51)
[2018-06-03] MEDS: IPRATROPIUM 0.5 MG/2.5 ML NEBU INHALATION SCH ×2 (15:15→18:55)
[2018-06-03] MEDS: HEPARIN SODIUM,PORCINE 5,000 UNIT/ML 1 ML VIAL SQ SCH (15:53)
[2018-06-03] MEDS ORDERED: Acetaminophen-Codeine 300-30mg TAB PO PRN (16:09)
[2018-06-03] MEDS: HYDROcodone/APAP 5-325MG 1 EACH TAB PO PRN ×2 (16:39→20:29)
[2018-06-03] MEDS: NICOTINE 21MG/24HR PATCH TRANSDERM SCH (16:39)
[2018-06-03] MEDS: FORMOTEROL FUMARATE 20 MCG/2 ML NEBU INHALATION SCH (18:55)
[2018-06-03] MEDS: FLUoxetine HCL 20 MG CAP PO SCH (20:30)
[2018-06-03 20:58] VITALS: RESP 18
[2018-06-03] MEDS ORDERED: NON-FORMULARY DRUG (Glycopyrrolate/Formoterol Fum [Bevespi Aerosphere Inhaler] 1 PUFF) INHALATION SCH (21:00)
[2018-06-04] MEDS: traMADol 50 MG TAB PO PRN (00:07)
[2018-06-04] MEDS: HEPARIN SODIUM,PORCINE 5,000 UNIT/ML 1 ML VIAL SQ SCH ×2 (00:07→08:15)
[2018-06-04] MEDS: DEXTROSE 5%-0.45% NACL 1,000 ML IV SCH (00:08)
--- NOTE | 2018-06-04 06:48 | P.DS ---
Providers Attending physician: Riley Farias Primary care physician: [facility] Course: The patient was admitted to the hospital 06/03/2018 for a trans-obturator tape. She underwent this pleasant anterior repair for a grade 2-3 cystocele. She did well postoperatively. She required some [place] for pain. Her catheter and packing of been removed this morning. She hasn't voided yet. Her vital signs are stable. She is afebrile. She is feeling well. If she voids to completion she'll be discharged home later today. She'll be given a prescription of [place]. She'll follow-up in the office in one week. Postoperative instructions been given. Condition is good. Patient Condition at Discharge: Good Plan - Discharge Summary Discharge Rx Participant: Yes New Discharge Prescriptions: New HYDROcodone/APAP 5-325MG [[place] 5-325] 1 tab PO Q6HR PRN 3 Days #12 tab PRN Reason: Pain Control No Action FLUoxetine HCL [PROzac] 20 mg PO BID Rivaroxaban [Xarelto] 20 mg PO DAILY ALPRAZolam [Xanax] 0.5 mg PO DAILY traMADol HCl [Ultram] 50 mg PO Q6H PRN #20 tab PRN Reason: Pain Albuterol Nebulized [Ventolin Nebulized] 2.5 mg INHALATION DIRECTED PRN PRN Reason: sob Lovenox(Dose Unknown) 1 applicate INJ DIRECTED Glycopyrrolate/Formoterol Fum [Bevespi Aerosphere Inhaler] 1 puff INHALATION BID Albuterol Sulfate [Proair Hfa] 2 puff INHALATION Q6HR PRN PRN Reason: Dyspnea guaiFENesin 400 mg PO DAILY Discharge Medication List FLUoxetine HCL [PROzac] 20 mg PO BID 05/07/16 [History] ALPRAZolam [Xanax] 0.5 mg PO DAILY 09/10/17 [History] Rivaroxaban [Xarelto] 20 mg PO DAILY 09/10/17 [History] traMADol HCl [Ultram] 50 mg PO Q6H PRN #20 tab 01/07/18 [Rx] Albuterol Nebulized [Ventolin Nebulized] 2.5 mg INHALATION DIRECTED PRN 04/29 [History] Lovenox(Dose Unknown) 1 applicate INJ DIRECTED 04/30/18 [History] Albuterol Sulfate [Proair Hfa] 2 puff INHALATION Q6HR PRN 06/01/18 [History] Glycopyrrolate/Formoterol Fum [Bevespi Aerosphere Inhaler] 1 puff INHALATION BID 06/01/18 [History] guaiFENesin 400 mg PO DAILY 06/01/18 [History] HYDROcodone/APAP 5-325MG [[place] 5-325] 1 tab PO Q6HR PRN 3 Days #12 tab [Rx] Follow up Appointment(s)/Referral(s): Riley Farias MD [STAFF PHYSICIAN] - 1 Week Activity/Diet/Wound Care/Special Instructions: resume yusef tomorrow, 06/05/2011 Discharge Disposition: HOME SELF-CARE
[2018-06-04] MEDS: KETOROLAC 30 MG/ML 1 ML VIAL IVP PRN (08:14)
[2018-06-04 08:29] VITALS: BP 114/64; TEMP 98.1
[2018-06-04] MEDS: FLUoxetine HCL 20 MG CAP PO SCH (08:36)
[2018-06-04] MEDS: FORMOTEROL FUMARATE 20 MCG/2 ML NEBU INHALATION SCH (08:49)
[2018-06-04] MEDS: IPRATROPIUM 0.5 MG/2.5 ML NEBU INHALATION SCH (08:49)
[2018-06-04] MEDS ORDERED: ALPRAZolam 0.5 MG TAB PO SCH (09:00)
[2018-06-04 09:11] VITALS: PULSE 84
[2018-06-04] MEDS: NICOTINE 21MG/24HR PATCH TRANSDERM SCH (11:50)
== END 2018-06-04 11:44 | disposition home or self-care (01) ==
LOC: OR 08:24 → 6PED 09:56 → OR 06-04 11:44
PROVIDERS: ATTEND Urology
DX: N39.3 Stress incontinence (female) (male) (principal); N81.10 Cystocele, unspecified; J44.9 Chronic obstructive pulmonary disease, unspecified; M79.7 Fibromyalgia; E72.12 Methylenetetrahydrofolate reductase deficiency; F17.210 Nicotine dependence, cigarettes, uncomplicated; I26.99 Other pulmonary embolism without acute cor pulmonale; Z79.01 Long term (current) use of anticoagulants; Z79.02 Long term (current) use of antithrombotics/antiplatelets; Z79.899 Other long term (current) drug therapy; Z91.040 Latex allergy status; Z88.2 Allergy status to sulfonamides; Z88.8 Allergy status to other drugs, medicaments and biological substances; Z91.018 Allergy to other foods; Z91.09 Other allergy status, other than to drugs and biological substances
CPT/HCPCS: 94640 ×4; 84132; 57288; 57240; C1771; S4990; J2250; J1200; J1644 ×2; J2710; J2405; J2001; J3010; J1885 ×2; J1170 ×2; J0690; J2704

== ENCOUNTER → 2018-07-22 | Outpatient (CLI) | payer BC ==
--- NOTE | 2018-07-22 14:07 | CT ---
EXAMINATION TYPE: CT angio chest DATE OF EXAM: 07/22/2018 COMPARISON: 02/28/2017 HISTORY: Chest pain x [address] DLP: 497 mGycm CONTRAST: CT chest with contrast and 3D reconstruction with MIP imaging is performed with IV Contrast, patient injected with 67 mL of Isovue 370. Contrast-enhanced CT of the chest was performed through the course of the pulmonary arteries with erich g and mediastinal window settings submitted. 3D reconstruction with MIP imaging was also performed. PULMONARY ARTERIES: The pulmonary arteries and their major tributaries are patent. I do not see nevin dence for sizable filling defect to suggest pulmonary embolic process. LUNGS: The lungs are clear and free of infiltrate. No evidence for atelectasis. No pulmonary nodule or mass is detected. No pleural effusion. MEDIASTINUM: Thoracic aorta is of normal caliber,however, evaluation is limited given timing of the contrast bolus. If there is concern for thoracic aortic pathology consider AMIRAH. Correlate clinicall y . The heart is not enlarged. No evidence for mediastinal mass. No mediastinal lymph nodes greater than 1cm. HILAR STRUCTURES: No evidence for mass. No hilar lymph nodes greater than 1 cm. UPPER ABDOMEN: No significant abnormality is seen. IMPRESSION: 1. No evidence for Pulmonary embolism at this time.
== END | disposition home or self-care (01) ==
LOC: RADCTMAIN 13:28
PROVIDERS: ATTEND Internal Medicine Critical Care Medicine
DX: I26.99 Other pulmonary embolism without acute cor pulmonale (principal); Z91.040 Latex allergy status; Z88.2 Allergy status to sulfonamides; Z88.8 Allergy status to other drugs, medicaments and biological substances; Z91.09 Other allergy status, other than to drugs and biological substances
CPT/HCPCS: 71275; Q9967

== ENCOUNTER 2018-07-30 16:11 | Emergency (ER) | payer BC ==
[2018-07-30 17:49] LABS: Amphetamine Screen,Urine Not Detected (NotDetected); Barbiturate Screen,Urine Not Detected (NotDetected); Benzodiazepines Screen,Urine Detected (NotDetected); Cocaine Screen,Urine Not Detected (NotDetected); Methadone Screen, Urine Not Detected (NotDetected); Opiate Screen,Urine Not Detected (NotDetected); Oxycodone Screen, Urine Not Detected (NotDetected); Phencyclidine Screen,Urine Not Detected (NotDetected); Tricyclic Antidepressant,Urine Not Detected (NotDetected); Urn Cannabinoid Scrn Detected (NotDetected)
--- NOTE | 2018-07-30 18:03 | ED ---
Psych HPI - General Chief Complaint: Psychiatric Symptoms Stated Complaint: mental health Time Seen by Provider: 07/30/18 16:57 Source: patient, RN notes reviewed Mode of arrival: ambulatory - History of Present Illness Initial Comments: This is a 38-year-old female history of prior depression and suicidal ideation history of anxiety also history of pulmonary embolism and pulmonary infarct in the past who presents today because she's not been feeling well she did feel very anxious and depressed for the past 2 months nothing particular setting it off. She states that about a month ago her doctor stopped prescribing Xanax is he thought she was using too much of it. She feels very desponded depressed but denies any suicidal ideation at this time. MD Complaint: feels depressed - Related Data Home Medications Medication Instructions Recorded Confirmed FLUoxetine HCL [PROzac] 20 mg PO BID 05/07/16 07/30/18 ALPRAZolam [Xanax] 0.5 mg PO DAILY 09/10/17 07/30/18 Rivaroxaban [Xarelto] 20 mg PO DAILY 09/10/17 07/30/18 Albuterol Nebulized [Ventolin 2.5 mg INHALATION DIRECTED PRN 04/29/18 Nebulized] Albuterol Sulfate [Proair Hfa] 2 puff INHALATION Q6HR PRN 06/01/18 07/30/18 Cbd Oil 1 drop TOPICAL DAILY 07/30/18 07/30/18 Fluticasone/Vilanterol [Breo 1 inhalation INHALATION RT-DAILY 07/30/18 07/30/18 Ellipta 200-25 Mcg INH] Previous Rx's Medication Instructions Recorded HYDROcodone/APAP 5-325MG [[place] 1 tab PO Q6HR PRN 3 Days #12 tab 06/04/18 5-325] Allergies Allergy/AdvReac Type Severity Reaction Status Date / Time black walnut Allergy Severe Anaphylaxis Verified 07/30/18 17:30 latex Allergy Severe Rash/Hives Verified 07/30/18 17:30 Sulfa (Sulfonamide Allergy Severe Rash/Hives Verified 07/30/18 17:30 Antibiotics) sulfamethoxazole Allergy Severe Rash/Hives Verified 07/30/18 17:30 [From Bactrim] trimethoprim [From Bactrim] Allergy Severe Rash/Hives Verified 07/30/18 17:30 venlafaxine [From Effexor] Allergy Severe Hallucinati Verified 07/30/18 17:30 ons yeast, dried Allergy Severe Rash/Hives Verified 07/30/18 17:30 banana Allergy Intermediate Mouth Verified 07/30/18 17:30 breaks out with bumps pineapple Allergy Intermediate Hives and Verified 07/30/18 17:30 breaks out in sores in mouth tomato Allergy Intermediate Rash/Hives Verified 07/30/18 17:30 Mushroom Allergy Mild Rash/Hives Verified 07/30/18 17:30 asparagus Allergy Unknown Verified 07/30/18 17:30 grape Allergy Unknown Verified 07/30/18 17:30 bupropion HCl AdvReac Severe Hallucinati Verified 07/30/18 17:30 [From Wellbutrin] ons mold AdvReac Intermediate Unknown Verified 07/30/18 17:30 Review of Systems ROS Statement: Those systems with pertinent positive or pertinent negative responses have been documented in the HPI. ROS Other: All systems not noted in ROS Statement are negative. 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 IBS, anemia, hx lymes disease , urinary incontinence History of Any Multi-Drug Resistant Organisms: None Reported Past Surgical History: Adenoidectomy, Tonsillectomy Additional Past Surgical History / Comment(s): laser surgery on cervix for precancer, D&C. 06/03/2008 bladder sling Past Anesthesia/Blood Transfusion Reactions: Motion Sickness Past Psychological History: Anxiety, Depression Smoking Status: Current every day smoker Past Alcohol Use History: Occasional Past Drug Use History: None Reported - Past Family History Mother Family Medical History: Blood Disorder, Hypertension, Osteoarthritis (OA) Additional Family Medical History / Comment(s): A-fib MTHFR gene Father Family Medical History: Pulmonary Embolus Additional Family Medical History / Comment(s): father of PE post tramatic chest injury General Exam - General Exam Comments Initial Comments: This is a well-developed well-nourished awake alert oriented 3 female Limitations: no limitations General appearance: alert, in no apparent distress Head exam: Present: atraumatic, normocephalic, normal inspection Eye exam: Present: normal appearance, PERRL, EOMI. Absent: scleral icterus, conjunctival injection, periorbital swelling ENT exam: Present: normal exam, mucous membranes moist Neck exam: Present: normal inspection. Absent: tenderness, meningismus, lymphadenopathy Respiratory exam: Present: normal lung sounds bilaterally. Absent: respiratory distress, wheezes, rales, rhonchi, stridor Cardiovascular Exam: Present: regular rate, normal rhythm, normal heart sounds. Absent: systolic murmur, diastolic murmur, rubs, gallop, clicks GI/Abdominal exam: Present: soft, normal bowel sounds. Absent: distended, tenderness, guarding, rebound, rigid Extremities exam: Present: normal inspection, full ROM, normal capillary refill. Absent: tenderness, pedal edema, joint swelling, calf tenderness Back exam: Present: normal inspection Neurological exam: Present: alert, oriented X3, CN II-XII intact Psychiatric exam: Present: depressed, anxious. Absent: suicidal ideation Skin exam: Present: warm, dry, intact, normal color. Absent: rash Course Vital Signs 07/30/18 16:48 Temperature 98.5 F Pulse Rate 81 Respiratory 18 Rate Blood Pressure 131/61 O2 Sat by Pulse 100 Oximetry Medical Decision Making - Medical Decision Making The patient was evaluated by psychiatric service she will be discharged with outpatient referrals. She currently no being depressed is not suicidal or homicidal. - Lab Data Lab Results 07/30/18 Range/Units 17:26 Urine Opiates Screen Not Detected (NotDetected) Ur Oxycodone Screen Not Detected (NotDetected) Urine Methadone Screen Not Detected (NotDetected) Ur Propoxyphene Screen Not Detected (NotDetected) Ur Barbiturates Screen Not Detected (NotDetected) U Tricyclic Antidepress Not Detected (NotDetected) Ur Phencyclidine Scrn Not Detected (NotDetected) Ur Amphetamines Screen Not Detected (NotDetected) U Methamphetamines Scrn Not Detected (NotDetected) U Benzodiazepines Scrn Detected H (NotDetected) Urine Cocaine Screen Not Detected (NotDetected) U Marijuana (THC) Screen Detected H (NotDetected) Disposition Clinical Impression: Depression Disposition: HOME SELF-CARE Condition: Fair Instructions: Depression (ED) Additional Instructions: Follow-up as per the emergency psychiatric service Is patient prescribed a controlled substance at d/c from ED?: No Referrals: Antonino Swartz MD [Primary Care Provider] - 1-2 days
[2018-07-30 19:41] VITALS: BP 139/75; PULSE 65; RESP 16; TEMP 98.4
== END 2018-07-30 19:40 | disposition home or self-care (01) ==
LOC: EC 16:11
DX: F32.9 Major depressive disorder, single episode, unspecified (principal); J44.9 Chronic obstructive pulmonary disease, unspecified; F41.9 Anxiety disorder, unspecified; F17.200 Nicotine dependence, unspecified, uncomplicated; Z86.711 Personal history of pulmonary embolism; Z87.01 Personal history of pneumonia (recurrent); Z79.01 Long term (current) use of anticoagulants; Z79.51 Long term (current) use of inhaled steroids; Z79.899 Other long term (current) drug therapy; Z88.1 Allergy status to other antibiotic agents; Z88.2 Allergy status to sulfonamides; Z88.8 Allergy status to other drugs, medicaments and biological substances; Z91.018 Allergy to other foods; Z91.040 Latex allergy status; Z91.048 Other nonmedicinal substance allergy status
CPT/HCPCS: 80306; 82075; 99284

== ENCOUNTER → 2020-08-11 | Outpatient (CLI) | payer BC ==
[2020-08-11 14:56] LABS: Basophils % (A) 1 %; Eosinophils # (A) 0.1 k/uL (0-0.7); Eosinophils % (A) 2 %; HCT 42.6 % (34.0-46.0); HGB 13.4 gm/dL (11.4-16.0); Lymphocytes # (A) 2.1 k/uL (1.0-4.8); Lymphocytes % (A) 35 %; MCH 29.3 pg (25.0-35.0); MCHC 31.5 g/dL (31.0-37.0); MCV 93.1 fL (80.0-100.0); Mean Platelet Volume 7.6; Monocytes # (A) 0.4 k/uL (0-1.0); Monocytes % (A) 7 %; Neutrophils # (A) 3.2 k/uL (1.3-7.7); Neutrophils % (A) 54 %; Platelet Count 240 k/uL (150-450); RBC 4.57 m/uL (3.80-5.40); WBC 5.9 k/uL (3.8-10.6)
== END | disposition home or self-care (01) ==
LOC: LABPAT 13:27
PROVIDERS: ATTEND Obstetrics & Gynecology
DX: Z01.818 Encounter for other preprocedural examination (principal)
CPT/HCPCS: 36415; 85025; 93005

== ENCOUNTER 2021-10-26 18:31 | Observation (INO) | payer BC ==
--- NOTE | 2021-10-26 20:33 | XR ---
EXAMINATION TYPE: XR chest 2V DATE OF EXAM: 10/26/2021 COMPARISON: 11/29/2019 HISTORY: Cough and congestion TECHNIQUE: 2 views FINDINGS: There is some pulmonary interstitial edema. Heart size is normal. There are no hilar masses . Costophrenic angles are fairly clear. IMPRESSION: There is new mild pulmonary interstitial edema compared to old exam. This could be acute pneumonia.
[2021-10-26 21:53] LABS: Basophils % (A) 0 %; Eosinophils % (A) 0 %; HGB 14.8 gm/dL (11.4-16.0); Lymphocytes # (A) 0.6 k/uL (1.0-4.8); Lymphocytes % (A) 11 %; MCH 31.2 pg (25.0-35.0); MCHC 34.5 g/dL (31.0-37.0); MCV 90.4 fL (80.0-100.0); Mean Platelet Volume 8.1; Monocytes # (A) 0.3 k/uL (0-1.0); Monocytes % (A) 6 %; Neutrophils # (A) 4.6 k/uL (1.3-7.7); Neutrophils % (A) 81 %; Platelet Count 250 k/uL (150-450); RBC 4.76 m/uL (3.80-5.40); RDW 14.3 % (11.5-15.5); WBC 5.7 k/uL (3.8-10.6)
[2021-10-26 22:04] LABS: ALT 31 U/L (4-34); AST 37 U/L (14-36); African American GFR (CKD) >90 (>60 ml/min/1.73 sqM); Albumin 4.4 g/dL (3.5-5.0); Alkaline Phosphatase 96 U/L (38-126); Anion Gap 12 mmol/L; Blood Urea Nitrogen 8 mg/dL (7-17); Calcium 9.3 mg/dL (8.4-10.2); Carbon Dioxide 25 mmol/L (22-30); Chloride 95 mmol/L (98-107); Glucose 100 mg/dL (74-99); Non-African American GFR(CKD) >90 (>60 ml/min/1.73 sqM); Potassium 4.2 mmol/L (3.5-5.1); Sodium 132 mmol/L (137-145); Total Bilirubin 0.3 mg/dL (0.2-1.3); Total Protein 7.5 g/dL (6.3-8.2)
[2021-10-26 22:07] LABS: Amorphous Sediment,Urine Occasional /hpf; Appearance,Urine Clear (Clear); Bilirubin,Urine Negative (Negative); Blood,Urine Negative (Negative); Color,Urine Yellow; Glucose,Urine (UA) Negative (Negative); Hyaline Casts,Urine 4 /lpf (0-2); Ketones,Urine 1+ (Negative); Leukocyte Esterase,Urine Negative (Negative); Mucus,Urine Moderate /hpf; Nitrite,Urine Negative (Negative); Protein,Urine 1+ (Negative); RBC,Urine 1 /hpf (0-5); Specific Gravity,Urine 1.028 (1.001-1.035); Squamous Epithelial Cell,Urine 1 /hpf (0-4); WBC,Urine 2 /hpf (0-5)
[2021-10-27] MEDS ORDERED: ACETAMINOPHEN TAB 500 MG TAB PO STA (00:28)
[2021-10-27] MEDS ORDERED: SODIUM CHLORIDE 0.9% 1,000 ML IV STA (00:28)
[2021-10-27] MEDS ORDERED: DEXAMETHASONE SOD PHOSPHATE 10 MG/ML 1 ML VIAL IVP STA (00:28)
[2021-10-27] MEDS ORDERED: KETOROLAC 30 MG/ML 1 ML VIAL IVP STA (00:28)
--- NOTE | 2021-10-27 00:30 | ED ---
Fever HPI - General Chief Complaint: Fever Stated Complaint: CLAUDINE,Headache,Chills,Body Aches Time Seen by Provider: 10/26/21 23:57 Source: patient, family, RN notes reviewed, old records reviewed Mode of arrival: ambulatory Limitations: no limitations - History of Present Illness Initial Comments: This is a 51-year-old female to the ER today for evaluation. Patient presents today for evaluation regards to positive coronavirus shortness of breath fever not feeling well. Presents for antibody treatment patient is also having worsening cough and congestion MD Complaint: fever, malaise, weakness -: days(s) Temperature Source: subjective Context: multiple patients with similar symptoms Associated Symptoms: chills, myalgias, sore throat, cough, nausea Treatments Prior to Arrival: none - Related Data Home Medications Medication Instructions Recorded Confirmed FLUoxetine HCL [PROzac] 20 mg PO BID 05/07/16 07/30/18 ALPRAZolam [Xanax] 0.5 mg PO DAILY 09/10/17 07/30/18 Rivaroxaban [Xarelto] 20 mg PO DAILY 09/10/17 07/30/18 Albuterol Nebulized [Ventolin 2.5 mg INHALATION DIRECTED PRN 04/29/18 07/30/18 Nebulized] Albuterol Sulfate [Proair Hfa] 2 puff INHALATION Q6HR PRN 06/01/18 07/30/18 Cbd Oil 1 drop TOPICAL DAILY 07/30/18 07/30/18 Fluticasone/Vilanterol [Breo 1 inhalation INHALATION RT-DAILY 07/30/18 07/30/18 Ellipta 200-25 Mcg INH] Previous Rx's Medication Instructions Recorded HYDROcodone/APAP 5-325MG [[place] 1 tab PO Q6HR PRN 3 Days #12 tab 06/04/18 5-325] Allergies Allergy/AdvReac Type Severity Reaction Status Date / Time black walnut Allergy Severe Anaphylaxis Verified 10/26/21 20:14 latex Allergy Severe Rash/Hives Verified 10/26/21 20:14 Sulfa (Sulfonamide Allergy Severe Rash/Hives Verified 10/26/21 20:14 Antibiotics) sulfamethoxazole Allergy Severe Rash/Hives Verified 10/26/21 20:14 [From Bactrim] trimethoprim [From Bactrim] Allergy Severe Rash/Hives Verified 10/26/21 20:14 venlafaxine [From Effexor] Allergy Severe Hallucinati Verified 10/26/21 20:14 ons yeast, dried Allergy Severe Rash/Hives Verified 10/26/21 20:14 banana Allergy Intermediate Mouth Verified 10/26/21 20:14 breaks out with bumps pineapple Allergy Intermediate Hives and Verified 10/26/21 20:14 breaks out in sores in mouth tomato Allergy Intermediate Rash/Hives Verified 10/26/21 20:14 Mushroom Allergy Mild Rash/Hives Verified 10/26/21 20:14 asparagus Allergy Unknown Verified 10/26/21 20:14 grape Allergy Unknown Verified 10/26/21 20:14 bupropion HCl AdvReac Severe Hallucinati Verified 10/26/21 20:14 [From Wellbutrin] ons mold AdvReac Intermediate Unknown Verified 10/26/21 20:14 Review of Systems ROS Statement: Those systems with pertinent positive or pertinent negative responses have been documented in the HPI. ROS Other: All systems not noted in ROS Statement are negative. 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 IBS, anemia, hx lymes disease, urinary incontinence History of Any Multi-Drug Resistant Organisms: None Reported Past Surgical History: Adenoidectomy, Tonsillectomy Additional Past Surgical History / Comment(s): laser surgery on cervix for precancer, D&C. 06/03/2008 bladder sling Past Anesthesia/Blood Transfusion Reactions: Motion Sickness Past Psychological History: Anxiety, Depression Smoking Status: Former smoker Past Alcohol Use History: Occasional Past Drug Use History: None Reported - Past Family History Mother Family Medical History: Blood Disorder, Hypertension, Osteoarthritis (OA) Additional Family Medical History / Comment(s): A-fib MTHFR gene Father Family Medical History: Pulmonary Embolus Additional Family Medical History / Comment(s): father of PE post tramatic chest injury General Exam Limitations: no limitations General appearance: alert, in no apparent distress Head exam: Present: atraumatic, normocephalic, normal inspection Eye exam: Present: normal appearance, PERRL, EOMI. Absent: scleral icterus, conjunctival injection, periorbital swelling ENT exam: Present: normal exam, mucous membranes moist Neck exam: Present: normal inspection. Absent: tenderness, meningismus, lymphadenopathy Respiratory exam: Present: normal lung sounds bilaterally. Absent: respiratory distress, wheezes, rales, rhonchi, stridor Cardiovascular Exam: Present: regular rate, normal rhythm, normal heart sounds. Absent: systolic murmur, diastolic murmur, rubs, gallop, clicks GI/Abdominal exam: Present: soft, normal bowel sounds. Absent: distended, tenderness, guarding, rebound, rigid Extremities exam: Present: normal inspection, full ROM, normal capillary refill. Absent: tenderness, pedal edema, joint swelling, calf tenderness Back exam: Present: normal inspection Neurological exam: Present: alert, oriented X3, CN II-XII intact Psychiatric exam: Present: normal affect, normal mood Skin exam: Present: warm, dry, intact, normal color. Absent: rash Course Vital Signs 10/26/21 10/27/21 10/27/21 20:10 00:03 00:55 Temperature 103 F H Pulse Rate 97 88 Respiratory 22 26 H 26 H Rate Blood Pressure 123/82 120/76 O2 Sat by Pulse 95 95 Oximetry 10/27/21 01:20 Temperature 101.0 F H Pulse Rate 102 H Respiratory 22 Rate Blood Pressure 138/87 O2 Sat by Pulse 94 L Oximetry - Reevaluation(s) Reevaluation #1: 10/27/21 01:38 Medical record is reviewed Reevaluation #2: 10/27/21 01:38 Given treatment without complication Reevaluation #3: 10/27/21 01:38 Informed results and questions are answered Medical Decision Making - Medical Decision Making 51 female to the ER for evaluation patient will be discharged home, has coronavirus given coronavirus antibodies and can be discharged - Lab Data Result diagrams: 10/26/21 21:47 10/26/21 21:47 Lab Results 10/26/21 10/26/21 10/26/21 Range/Units 20:16 21:47 21:47 WBC 5.7 (3.8-10.6) k/uL RBC 4.76 (3.80-5.40) m/uL Hgb 14.8 (11.4-16.0) gm/dL Hct 43.0 (34.0-46.0) % MCV 90.4 (80.0-100.0) fL MCH 31.2 (25.0-35.0) pg MCHC 34.5 (31.0-37.0) g/dL RDW 14.3 (11.5-15.5) % Plt Count 250 (150-450) k/uL MPV 8.1 Neutrophils % 81 % Lymphocytes % 11 % Monocytes % 6 % Eosinophils % 0 % Basophils % 0 % Neutrophils # 4.6 (1.3-7.7) k/uL Lymphocytes # 0.6 L (1.0-4.8) k/uL Monocytes # 0.3 (0-1.0) k/uL Eosinophils # 0.0 (0-0.7) k/uL Basophils # 0.0 (0-0.2) k/uL D-Dimer 0.47 (<0.60) mg/L FEU Sodium (137-145) mmol/L Potassium (3.5-5.1) mmol/L Chloride (98-107) mmol/L Carbon Dioxide (22-30) mmol/L Anion Gap mmol/L BUN (7-17) mg/dL Creatinine (0.52-1.04) mg/dL Est GFR (CKD-EPI)AfAm (>60 ml/min/1.73 sqM) Est GFR (CKD-EPI)NonAf (>60 ml/min/1.73 sqM) Glucose (74-99) mg/dL Calcium (8.4-10.2) mg/dL Total Bilirubin (0.2-1.3) mg/dL AST (14-36) U/L ALT (4-34) U/L Alkaline Phosphatase (38-126) U/L Troponin I (0.000-0.034) ng/mL Total Protein (6.3-8.2) g/dL Albumin (3.5-5.0) g/dL Urine Color Urine Appearance (Clear) Urine pH (5.0-8.0) Ur Specific [place] (1.001-1.035) Urine Protein (Negative) Urine Glucose (UA) (Negative) Urine Ketones (Negative) Urine Blood (Negative) Urine Nitrite (Negative) Urine Bilirubin (Negative) Urine Urobilinogen (<2.0) mg/dL Ur Leukocyte Esterase (Negative) Urine RBC (0-5) /hpf Urine WBC (0-5) /hpf Ur Squamous Epith Cells (0-4) /hpf Amorphous Sediment (None) /hpf Hyaline Casts (0-2) /lpf Urine Mucus (None) /hpf Coronavirus (PCR) Detected A (Not Detectd) 10/26/21 10/26/21 10/26/21 Range/Units 21:47 21:47 21:47 WBC (3.8-10.6) k/uL RBC (3.80-5.40) m/uL Hgb (11.4-16.0) gm/dL Hct (34.0-46.0) % MCV (80.0-100.0) fL MCH (25.0-35.0) pg MCHC (31.0-37.0) g/dL RDW (11.5-15.5) % Plt Count (150-450) k/uL MPV Neutrophils % % Lymphocytes % % Monocytes % % Eosinophils % % Basophils % % Neutrophils # (1.3-7.7) k/uL Lymphocytes # (1.0-4.8) k/uL Monocytes # (0-1.0) k/uL Eosinophils # (0-0.7) k/uL Basophils # (0-0.2) k/uL D-Dimer (<0.60) mg/L FEU Sodium 132 L (137-145) mmol/L Potassium 4.2 (3.5-5.1) mmol/L Chloride 95 L (98-107) mmol/L Carbon Dioxide 25 (22-30) mmol/L Anion Gap 12 mmol/L BUN 8 (7-17) mg/dL Creatinine 0.74 (0.52-1.04) mg/dL Est GFR (CKD-EPI)AfAm >90 (>60 ml/min/1.73 sqM) Est GFR (CKD-EPI)NonAf >90 (>60 ml/min/1.73 sqM) Glucose 100 H (74-99) mg/dL Calcium 9.3 (8.4-10.2) mg/dL Total Bilirubin 0.3 (0.2-1.3) mg/dL AST 37 H (14-36) U/L ALT 31 (4-34) U/L Alkaline Phosphatase 96 (38-126) U/L Troponin I <0.012 (0.000-0.034) ng/mL Total Protein 7.5 (6.3-8.2) g/dL Albumin 4.4 (3.5-5.0) g/dL Urine Color Yellow Urine Appearance Clear (Clear) Urine pH 6.0 (5.0-8.0) Ur Specific [place] 1.028 (1.001-1.035) Urine Protein 1+ H (Negative) Urine Glucose (UA) Negative (Negative) Urine Ketones 1+ H (Negative) Urine Blood Negative (Negative) Urine Nitrite Negative (Negative) Urine Bilirubin Negative (Negative) Urine Urobilinogen 3.0 (<2.0) mg/dL Ur Leukocyte Esterase Negative (Negative) Urine RBC 1 (0-5) /hpf Urine WBC 2 (0-5) /hpf Ur Squamous Epith Cells 1 (0-4) /hpf Amorphous Sediment Occasional H (None) /hpf Hyaline Casts 4 H (0-2) /lpf Urine Mucus Moderate H (None) /hpf Coronavirus (PCR) (Not Detectd) - Radiology Data Radiology results: report reviewed (Chest x-rays positive for coronavirus pneumonia), image reviewed Disposition Clinical Impression: Coronavirus infection, Pneumonia due to COVID-19 virus Disposition: HOME SELF-CARE Condition: Good Instructions (If sedation given, give patient instructions): Coronavirus D isease 2018 (COVID-19) Is patient prescribed a controlled substance at d/c from ED?: No Referrals: Antonino Swartz MD [Primary Care Provider] - 1-2 days
[2021-10-27] MEDS ORDERED: SOTROVIMAB (EUA) 500 MG in SODIUM CHLORIDE 0.9% 100 ML IVPB ONE (01:00)
[2021-10-27] MEDS ORDERED: SODIUM CHLORIDE 0.9% 50 ML IVPB ONE (01:00)
[2021-10-27] MEDS ORDERED: MORPHINE SULFATE 4 MG/ML SYRINGE IVP STA (02:18)
--- NOTE | 2021-10-27 02:58 | XR ---
EXAMINATION TYPE: XR lumbar spine 2 or 3V DATE OF EXAM: 10/27/2021 COMPARISON: NONE HISTORY: Back pain TECHNIQUE: 3 views FINDINGS: Lumbar vertebra have normal alignment. Posterior elements are intact. There is no compressi on fracture. Sacroiliac joints are intact IMPRESSION: Negative lumbar spine exam.
--- NOTE | 2021-10-27 02:58 | XR ---
EXAMINATION TYPE: XR Hip LT and AP Pelvis DATE OF EXAM: 10/27/2021 COMPARISON: NONE HISTORY: Hip pain TECHNIQUE: 3 views FINDINGS: I see no fracture nor dislocation. Pelvic ring is intact. Proximal left femur and hip joint appear normal. Sacroiliac joints are normal. IMPRESSION: Normal pelvis and left hip exam.
[2021-10-27] MEDS ORDERED: IBUPROFEN 400 MG TAB PO PRN (03:31)
[2021-10-27] MEDS ORDERED: ACETAMINOPHEN TAB 325 MG TAB PO PRN (03:31)
[2021-10-27] MEDS ORDERED: ONDANSETRON 4 MG/2 ML VIAL IVP PRN (03:31)
[2021-10-27] MEDS ORDERED: MORPHINE SULFATE 4 MG/ML SYRINGE IV PRN (03:31)
[2021-10-27] MEDS ORDERED: NALOXONE 0.4 MG/ML 1 ML VIAL IV PRN (03:31)
--- NOTE | 2021-10-27 03:35 | ED ---
Medical Decision Making - Lab Data Result diagrams: 10/26/21 21:47 10/26/21 21:47 Lab Results 10/26/21 10/26/21 10/26/21 Range/Units 20:16 21:47 21:47 WBC 5.7 (3.8-10.6) k/uL RBC 4.76 (3.80-5.40) m/uL Hgb 14.8 (11.4-16.0) gm/dL Hct 43.0 (34.0-46.0) % MCV 90.4 (80.0-100.0) fL MCH 31.2 (25.0-35.0) pg MCHC 34.5 (31.0-37.0) g/dL RDW 14.3 (11.5-15.5) % Plt Count 250 (150-450) k/uL MPV 8.1 Neutrophils % 81 % Lymphocytes % 11 % Monocytes % 6 % Eosinophils % 0 % Basophils % 0 % Neutrophils # 4.6 (1.3-7.7) k/uL Lymphocytes # 0.6 L (1.0-4.8) k/uL Monocytes # 0.3 (0-1.0) k/uL Eosinophils # 0.0 (0-0.7) k/uL Basophils # 0.0 (0-0.2) k/uL D-Dimer 0.47 (<0.60) mg/L FEU Sodium (137-145) mmol/L Potassium (3.5-5.1) mmol/L Chloride (98-107) mmol/L Carbon Dioxide (22-30) mmol/L Anion Gap mmol/L BUN (7-17) mg/dL Creatinine (0.52-1.04) mg/dL Est GFR (CKD-EPI)AfAm (>60 ml/min/1.73 sqM) Est GFR (CKD-EPI)NonAf (>60 ml/min/1.73 sqM) Glucose (74-99) mg/dL Calcium (8.4-10.2) mg/dL Total Bilirubin (0.2-1.3) mg/dL AST (14-36) U/L ALT (4-34) U/L Alkaline Phosphatase (38-126) U/L Troponin I (0.000-0.034) ng/mL Total Protein (6.3-8.2) g/dL Albumin (3.5-5.0) g/dL Urine Color Urine Appearance (Clear) Urine pH (5.0-8.0) Ur Specific [place] (1.001-1.035) Urine Protein (Negative) Urine Glucose (UA) (Negative) Urine Ketones (Negative) Urine Blood (Negative) Urine Nitrite (Negative) Urine Bilirubin (Negative) Urine Urobilinogen (<2.0) mg/dL Ur Leukocyte Esterase (Negative) Urine RBC (0-5) /hpf Urine WBC (0-5) /hpf Ur Squamous Epith Cells (0-4) /hpf Amorphous Sediment (None) /hpf Hyaline Casts (0-2) /lpf Urine Mucus (None) /hpf Coronavirus (PCR) Detected A (Not Detectd) 10/26/21 10/26/21 10/26/21 Range/Units 21:47 21:47 21:47 WBC (3.8-10.6) k/uL RBC (3.80-5.40) m/uL Hgb (11.4-16.0) gm/dL Hct (34.0-46.0) % MCV (80.0-100.0) fL MCH (25.0-35.0) pg MCHC (31.0-37.0) g/dL RDW (11.5-15.5) % Plt Count (150-450) k/uL MPV Neutrophils % % Lymphocytes % % Monocytes % % Eosinophils % % Basophils % % Neutrophils # (1.3-7.7) k/uL Lymphocytes # (1.0-4.8) k/uL Monocytes # (0-1.0) k/uL Eosinophils # (0-0.7) k/uL Basophils # (0-0.2) k/uL D-Dimer (<0.60) mg/L FEU Sodium 132 L (137-145) mmol/L Potassium 4.2 (3.5-5.1) mmol/L Chloride 95 L (98-107) mmol/L Carbon Dioxide 25 (22-30) mmol/L Anion Gap 12 mmol/L BUN 8 (7-17) mg/dL Creatinine 0.74 (0.52-1.04) mg/dL Est GFR (CKD-EPI)AfAm >90 (>60 ml/min/1.73 sqM) Est GFR (CKD-EPI)NonAf >90 (>60 ml/min/1.73 sqM) Glucose 100 H (74-99) mg/dL Calcium 9.3 (8.4-10.2) mg/dL Total Bilirubin 0.3 (0.2-1.3) mg/dL AST 37 H (14-36) U/L ALT 31 (4-34) U/L Alkaline Phosphatase 96 (38-126) U/L Troponin I <0.012 (0.000-0.034) ng/mL Total Protein 7.5 (6.3-8.2) g/dL Albumin 4.4 (3.5-5.0) g/dL Urine Color Yellow Urine Appearance Clear (Clear) Urine pH 6.0 (5.0-8.0) Ur Specific [place] 1.028 (1.001-1.035) Urine Protein 1+ H (Negative) Urine Glucose (UA) Negative (Negative) Urine Ketones 1+ H (Negative) Urine Blood Negative (Negative) Urine Nitrite Negative (Negative) Urine Bilirubin Negative (Negative) Urine Urobilinogen 3.0 (<2.0) mg/dL Ur Leukocyte Esterase Negative (Negative) Urine RBC 1 (0-5) /hpf Urine WBC 2 (0-5) /hpf Ur Squamous Epith Cells 1 (0-4) /hpf Amorphous Sediment Occasional H (None) /hpf Hyaline Casts 4 H (0-2) /lpf Urine Mucus Moderate H (None) /hpf Coronavirus (PCR) (Not Detectd) Disposition Clinical Impression: Coronavirus infection, Pneumonia due to COVID-19 virus, Falls, Weakness Disposition: ADMITTED IP TO THIS HOSP Condition: Good Instructions (If sedation given, give patient instructions): Coronavirus Disease 2019 (COVID-19) Is patient prescribed a controlled substance at d/c from ED?: No Referrals: Antonino Swartz MD [Primary Care Provider] - 1-2 days
[2021-10-27] MEDS ORDERED: SODIUM CHLORIDE 0.9% 1,000 ML IV SCH (03:45)
--- NOTE | 2021-10-27 05:06 | P.HPIM ---
History of Present Illness H&P Date: 10/27/21 The patient is a 51-year-old female with a PMH of multiple PEs (on Xarelto), chronic lower back pain, tobacco abuse, and COPD who presents to the emergency room with complaints of diffuse body aches and fever. The patient reports that her symptoms started roughly 4 days ago soon after her was diagnosed with a pneumonia. She is unvaccinated to COVID-19. She further reports decreased oral intake, mild nonproductive cough, and nausea without vomiting or diarrhea. She reports having tripped on her dog 2-3 days ago but denied head trauma or suffering any other injuries. The patient notes that she has not smoked over the past 4 days since the onset of her symptoms. In the emergency room, the patient had a T-max of 103 with SpO2 95% on room air. Laboratory evaluation was remarkable for coronavirus PCR positive. Hip and lumbar spine x- rays were unremarkable with chest x-ray consistent with atypical pneumonia and EKG showing normal sinus rhythm at [address]/T-wave changes noted as reviewed by me. She was also given monoclonal antibodies. Discussed with the patient that she can be discharged home, although that if her breathing worsens, that she should immediately come to the emergency room. Further advised the patient to monitor her SpO2 via an [id number] pulse oximeter and that if it goes below 92%, that she should return to the ED. The patient was in agreement with the plan. Review of systems: Pertinent positives and negatives as discussed in HPI, a complete review of systems was performed and all other systems are negative. Physical examination: General: non toxic, no distress, appears at stated age, normal weight Derm: no unusual rashes/lesions no unusual ecchymoses, warm, dry Head: atraumatic, normocephalic, symmetric Eyes: EOMI, no lid lag, anicteric sclera, pupils equal round reactive to light ENT: Nose and ears atraumatic, no thrush, no pharyngeal erythema Neck: No thyromegaly, no cervical lymphadenopathy, trachea midline, supple Mouth: no lip lesion, mucus membranes moist Cardiovascular: S1S2 reg, no murmur, positive posterior tibial pulse bilateral, no edema, capillary refill less than 2 seconds Lungs: Mild scattered rhonchi no wheezing, no accessory muscle use Abdominal: soft, nontender to palpation, no guarding, no appreciable organomegaly, normal bowel sounds Ext: no gross muscle atrophy, muscle strength 4 out of 5 in all 4 extremities grossly, no contractures Neuro: CN II-XI grossly intact, light touch intact all 4 extremities, finger to nose within normal limits, Psych: Alert, oriented, appropriate affect Assessment: COVID-19 pneumonia, not requiring supplemental oxygen; hx of PEs; tobacco abuse; COPD chronic *This H&P will also serve as the discharge summary for this patient. 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 IBS, anemia, hx lymes dis ease, urinary incontinence History of Any Multi-Drug Resistant Organisms: None Reported Past Surgical History: Adenoidectomy, Tonsillectomy Additional Past Surgical History / Comment(s): laser surgery on cervix for precancer, D&C. 06/03/2008 bladder sling Past Anesthesia/Blood Transfusion Reactions: Motion Sickness Past Psychological History: Anxiety, Depression Smoking Status: Former smoker Past Alcohol Use History: Occasional Past Drug Use History: None Reported - Past Family History Mother Family Medical History: Blood Disorder, Hypertension, Osteoarthritis (OA) Additional Family Medical History / Comment(s): A-fib MTHFR gene Father Family Medical History: Pulmonary Embolus Additional Family Medical History / Comment(s): father of PE post tramatic chest injury Medications and Allergies Home Medications Medication Instructions Recorded Confirmed Type FLUoxetine HCL [PROzac] 20 mg PO BID 05/07/16 07/30/18 History ALPRAZolam [Xanax] 0.5 mg PO DAILY 09/10/17 07/30/18 History Rivaroxaban [Xarelto] 20 mg PO DAILY 09/10/17 07/30/18 History Albuterol Nebulized [Ventolin 2.5 mg INHALATION DIRECTED PRN 04/29/18 07/30/18 History Nebulized] Albuterol Sulfate [Proair Hfa] 2 puff INHALATION Q6HR PRN 06/01/18 07/30/18 History HYDROcodone/APAP 5-325MG [[place] 1 tab PO Q6HR PRN 3 Days #12 tab 06/04/18 07/30/18 Rx 5-325] Cbd Oil 1 drop TOPICAL DAILY 07/30/18 07/30/18 History Fluticasone/Vilanterol [Breo 1 inhalation INHALATION RT-DAILY 07/30/18 07/30/18 History Ellipta 200-25 Mcg Inhaler] Allergies Allergy/AdvReac Type Severity Reaction Status Date / Time black walnut Allergy Severe Anaphylaxis Verified 10/26/21 20:14 latex Allergy Severe Rash/Hives Verified 10/26/21 20:14 Sulfa (Sulfonamide Allergy Severe Rash/Hives Verified 10/26/21 20:14 Antibiotics) sulfamethoxazole Allergy Severe Rash/Hives Verified 10/26/21 20:14 [From Bactrim] trimethoprim [From Bactrim] Allergy Severe Rash/Hives Verified 10/26/21 20:14 venlafaxine [From Effexor] Allergy Severe Hallucinati Verified 10/26/21 20:14 ons yeast, dried Allergy Severe Rash/Hives Verified 10/26/21 20:14 banana Allergy Intermediate Mouth Verified 10/26/21 20:14 breaks out with bumps pineapple Allergy Intermediate Hives and Verified 10/26/21 20:14 breaks out in sores in mouth tomato Allergy Intermediate Rash/Hives Verified 10/26/21 20:14 Mushroom Allergy Mild Rash/Hives Verified 10/26/21 20:14 asparagus Allergy Unknown Verified 10/26/21 20:14 grape Allergy Unknown Verified 10/26/21 20:14 bupropion HCl AdvReac Severe Hallucinati Verified 10/26/21 20:14 [From Wellbutrin] ons mold AdvReac Intermediate Unknown Verified 10/26/21 20:14 Physical Exam Vitals: Vital Signs Temp Pulse Resp BP Pulse Ox 10/27/21 04:00 98.9 F 10/27/21 02:38 91 20 121/68 94 L 10/27/21 01:20 101.0 F H 102 H 22 138/87 94 L 10/27/21 00:55 26 H 10/27/21 00:03 88 26 H 120/76 95 10/26/21 20:10 103 F H 97 22 123/82 95 Intake and Output 10/26/21 10/26/21 10/27/21 14:59 22:59 06:59 Other: Weight 81.647 kg Results CBC & Chem 7: 10/26/21 21:47 10/26/21 21:47 Labs: Abnormal Lab Results - Last 24 Hours (Table) 10/26/21 10/26/21 10/26/21 Range/Units 20:16 21:47 21:47 Lymphocytes # 0.6 L (1.0-4.8) k/uL Sodium (137-145) mmol/L Chloride (98-107) mmol/L Glucose (74-99) mg/dL AST (14-36) U/L Urine Protein 1+ H (Negative) Urine Ketones 1+ H (Negative) Amorphous Sediment Occasional H (None) /hpf Hyaline Casts 4 H (0-2) /lpf Urine Mucus Moderate H (None) /hpf Coronavirus (PCR) Detected A (Not Detectd) 10/26/21 Range/Units 21:47 Lymphocytes # (1.0-4.8) k/uL Sodium 132 L (137-145) mmol/L Chloride 95 L (98-107) mmol/L Glucose 100 H (74-99) mg/dL AST 37 H (14-36) U/L Urine Protein (Negative) Urine Ketones (Negative) Amorphous Sediment (None) /hpf Hyaline Casts (0-2) /lpf Urine Mucus (None) /hpf Coronavirus (PCR) (Not Detectd)
[2021-10-27] MEDS ORDERED: DEXAMETHASONE SOD PHOSPHATE 4 MG/ML 1 ML VIAL IVP SCH (06:00)
[2021-10-27 11:57] VITALS: PULSE 78
[2021-10-27 13:17] VITALS: BP 124/70; RESP 18; TEMP 97.7
== END 2021-10-27 14:05 | disposition home or self-care (01) ==
LOC: EC 18:31 → INTOOBSV 10-27 03:31 → 4SSUR 10-27 03:31 → UNDODISIN 10-27 14:05
PROVIDERS: ADMIT Internal Medicine; ATTEND Internal Medicine
DX: U07.1 COVID-19 (principal); J12.82 Pneumonia due to coronavirus disease 2019; R50.9 Fever, unspecified; R51.9 Headache, unspecified; R11.0 Nausea; R53.81 Other malaise; M79.7 Fibromyalgia; J44.0 Chronic obstructive pulmonary disease with (acute) lower respiratory infection; A69.20 Lyme disease, unspecified; E72.12 Methylenetetrahydrofolate reductase deficiency; K58.9 Irritable bowel syndrome, unspecified; D64.9 Anemia, unspecified; R32 Unspecified urinary incontinence; F41.9 Anxiety disorder, unspecified; F32.A Depression, unspecified; G89.29 Other chronic pain; M54.59 Other low back pain; W01.0XXA Fall on same level from slipping, tripping and stumbling without subsequent striking against object, initial encounter; Z87.891 Personal history of nicotine dependence; Z86.711 Personal history of pulmonary embolism; Z87.01 Personal history of pneumonia (recurrent); Z79.899 Other long term (current) drug therapy; Z79.01 Long term (current) use of anticoagulants; Z91.040 Latex allergy status; Z91.018 Allergy to other foods; Z88.2 Allergy status to sulfonamides; Z88.8 Allergy status to other drugs, medicaments and biological substances; Z91.048 Other nonmedicinal substance allergy status; Z98.890 Other specified postprocedural states; Z82.49 Family history of ischemic heart disease and other diseases of the circulatory system; Z82.61 Family history of arthritis; Z83.2 Family history of diseases of the blood and blood-forming organs and certain disorders involving the immune mechanism
CPT/HCPCS: 96376; 96361; 96374; 96375; 99285; 36415; 93005; 85379; 80053; 84484; 85025; 81001; 87635; 72100; 73502; 71046; G0378; M0247; J2270; J1100 ×2; J2405; J1885; Q0247

== ENCOUNTER → 2024-07-23 | Outpatient (CLI) | payer BC ==
--- NOTE | 2024-08-01 12:28 | MM ---
Reason for Exam: Screening (asymptomatic). Last mammogram was performed 12 year(s) and 8 month(s) ago. Patient History: Menarche at age 10. First Full-Term at age 17. Risk Values: Shannan 5 year model risk: 0.8%. NCI Lifetime model risk: 6.0%. Prior Study Comparison: 11/16/2009 Bilateral Screening Mammogram, [facility]. 11/28/2009 Right Diagnostic Mammogram, [facility]. 11/20/2011 Bilateral Diagnostic Mammogram, [facility]. Tissue Density: The breasts are heterogeneously dense, which may obscure small masses. Findings: Analyzed By CAD. Right breast: There is no suspicious group of microcalcifications or new suspicious mass. Benign-appearing calcifications right breast. Left breast: There is no suspicious group of microcalcifications or new suspicious mass. Benign-appearing calcifications left breast. Overall Assessment: Benign, BI-RAD 2 Management: Screening Mammogram of both breasts in [address] [facility] will attempt to contact patient to return for supplemental views and ultrasound if indicated. Patient should continue monthly self-breast exams. A clinical breast exam by your physician is recommended on an annual basis. This exam should not preclude additional follow-up of suspicious palpable abnormalities. Note on Shannan scores and lifetime risk: 1. A Shannan score greater than 3% is considered moderate risk. If this is the case, consider specialist referral to assess eligibility for a risk reducing agent. 2. If overall lifetime risk for the development of breast cancer is 20% or higher, the patient may qualify for future screening with alternating mammogram and breast MRI. Electronically signed and approved by: Rico Woods DO
== END | disposition home or self-care (01) ==
LOC: RADMAMWWP 10:33
PROVIDERS: ATTEND Family Medicine
DX: Z12.31 Encounter for screening mammogram for malignant neoplasm of breast
CPT/HCPCS: 77063; 77067